=== PATIENT | female | born 1950 | race Caucasian/White ===

== ENCOUNTER 2017-03-25 18:13 | Observation (INO) ==
[2017-03-25 19:34] LABS: Basophils % 0.5 %; Eosinophils # 0.3 K/mcL (0.0-0.6); Eosinophils % 3.6 %; Hemoglobin 13.2 g/dL (11.5-15.4); Immature Granulocytes % 0.1 % (0-4); Lymphocytes # 3.2 K/mcL (0.6-4.6); Lymphocytes % 37.1 %; Mean Corpuscular Hemoglobin 28.7 pg (28.0-33.3); Mean Platelet Volume 10.9 fL (9.4-12.4); Monocytes # 0.6 K/mcL (0.0-1.3); Neutrophils # 4.4 K/mcL (1.6-8.9); Platelet Count 235 K/mcL (140-400); Red Cell Distribution Width 12.4 % (11.5-14.5); Segmented Neutrophils % 51.7 %
--- NOTE | 2017-03-25 19:38 | Emergency Department Note ---
Disposition Clinical Impression: S/P cardiac cath, Atypical chest pain CAD (coronary artery disease) Qualifiers: Coronary Disease-Associated Artery/Lesion type: [place] artery [place] vs. transplanted heart: [place] heart Associated angina: with unspecified angina Qualified Code(s): I25.119 - Atherosclerotic heart disease of [place] coronary artery with unspecified angina pectoris Disposition: Admitted As Inpatient Condition: Good Time of Disposition: 22:26 Chest Pain HPI - General Chief Complaint: ED Chest Pain Stated Complaint: Chest pain, Stent placed 03/20/17 Time Seen by Provider: 03/25/17 19:23 Source: patient, family Limitations: no limitations Vital Signs Reviewed: Yes Nursing Notes Reviewed: Yes - History of Present Illness HPI Narrative: 66-year-old female history of CHF, hypertension, hyperlipidemia, diabetes, recent stent 2 to the mid LAD and re-stenting of the RCA, proximal LAD stent was patent her catheterization report March [address] Vidhya Prado, patient presents with chest pain at rest, worse with exertion mid chest she feels a sharp currently pain-free but was as bad as a 5 out of 10 throughout the day. Some radiation to her back. 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 And beta rylan. Eyes hemoptysis or leg swelling. Reports some nausea but no emesis denies hematochezia or melena Pt complaint: chest pain Onset (ago): day(s) Duration: intermittent Onset: during rest Pain Location: substernal Severity: now resolved Severity scale (1-10): 3 Quality: tightness Pain Radiation: back Worsens with: exertion Associated symptoms: Reports: nausea, vomiting Treatments prior to arrival chest pain: none, nitroglycerin (x2) - Related Data Home Medications Medication Instructions Recorded Confirmed Metformin [Glucophage] 1,000 mg PO BIDWM 04/02/15 03/25/17 Clopidogrel [Plavix] 75 mg PO DAILY 04/10/15 03/25/17 Empagliflozin [Jardiance] 25 mg PO DAILY 07/22/16 03/25/17 Isosorbide MONOnitrate (24 HR) 60 mg PO DAILY 07/22/16 03/25/17 [Imdur] Lansoprazole [Prevacid] 15 mg PO QAM 07/22/16 03/25/17 Lisinopril [Zestril] 10 mg PO BID 07/22/16 03/25/17 Magnesium 250 mg PO DAILY 07/22/16 03/25/17 Gabapentin [Neurontin] 300 mg PO QAM 02/27/17 03/25/17 Gabapentin [Neurontin] 600 mg PO HS 02/27/17 03/25/17 GlipiZIDE [Glipizide Xl] 5 mg PO DAILY 02/27/17 03/25/17 Insulin Glargine/Lixisenatide 16 unit SQ HS 02/27/17 03/25/17 [Soliqua 100 Unit-33 Mcg/ml Pen] Insulin LISPRO [Humalog] 6 - 12 unit SQ TIDWM 02/27/17 03/25/17 Previous Rx's Medication Instructions Recorded Aspirin Enteric Coated [Aspirin EC] 81 mg PO DAILY #30 02/28/17 Metoprolol [Lopressor] 12.5 mg PO BID 30 Days 02/28/17 Amlodipine Besylate 10 mg PO DAILY #30 tablet 03/21/17 Lidocaine Patch [Lidoderm 5% patch] 1 each TP DAILY #15 patch 03/21/17 Rosuvastatin [Crestor] 40 mg PO HS #30 tab 03/21/17 Allergies Allergy/AdvReac Type Severity Reaction Status Date / Time Erythromycin Base Allergy Rash Verified 03/25/17 18:18 Penicillins Allergy Rash Verified 03/25/17 18:18 Sulfa (Sulfonamide Allergy Rash Verified 03/25/17 18:18 Antibiotics) All systems ED: reviewed and negative except as stated. Review of Systems: As Per HPI Constitutional: Denies: fever, chills, weakness Eyes: Denies: eye pain ENT ED: Denies: ear pain Cardiovascular: Reports: as per HPI, chest pain. Denies: palpitations, dyspnea on exertion Respiratory: Denies: cough, dyspnea Gastrointestinal: Denies: abdominal pain, nausea Genitourinary: Denies: urgency, dysuria Musculoskeletal: Denies: back pain, neck pain Integumentary: Denies: rash Neurological: Denies: headache Psychiatric: Denies: anxiety Endocrine: Denies: fatigue Chest Pain PMH - Past Medical History Medical history: Reports: arthritis, CHF, coronary artery disease, DVT, diabetes , hyperlipidemia, hypertension, myocardial infarction, other Surgical history: Reports: angioplasty/stent, appendectomy, , cholecystectomy, knee replacement, orthopedic, other Psychiatric history: Reports: no psych history Prior Cardiac Testing/Procedures: Stenting 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 - Social History Smoking Status: Never smoker Alcohol use: Reports: none Drug use: Reports: none Physical Exam Constitutional: alert and oriented, in NAD, vital signs reviewed and wnl Neck: normal inspection, neck is supple, no JVD Resp: normal chest inspection, CTA bilaterally, no resp distress, no wheezes/ rales/rhonchi CV: RRR, no murmurs/gallops/rubs, S1 and S2 heard Extremity: +2 bilateral radial and posterial tibial pulses, no pedal edema GI: normal inspection, Soft, NTND, no peritoneal signs, no palpable abdominal aortic aneurysm Back: normal inspection, no tenderness to palpation Neuro: A&O3, no gross motor or sensory deficits bilaterally MSK: normal inspection, bilateral UE and LE with normal ROM Skin: Groin ecchymosis on the right no pulsatile hematoma - General Limitations: no limitations General appearance: alert, in no apparent distress Course Course Narrative: 66-year-old female with multiple risk factors including history of DVTs anticoagulation, she has a heart score of 5 without a troponin, recently stented she has several stents in her current chest pain and for readmission risk factor stratification aspirin ordered no nitroglycerin at this time her chest pain is improved. - Reevaluation(s) Reevaluation #1: Admitted to Dr Garcia, CP free at admission and HD stable Given lvoenox for anticoagulation, CTA clear for PE. Time: 22:05 Vital Signs Temperature 98.9 F 03/25/17 18:15 Pulse Rate 74 03/25/17 18:15 Respiratory Rate 18 03/25/17 18:15 Blood Pressure 165/91 03/25/17 18:15 O2 Sat by Pulse Oximetry 97 03/25/17 18:15 Temperature 98.9 F 03/25/17 18:15 Pulse Rate 72 03/25/17 21:12 Respiratory Rate 16 03/25/17 22:02 Blood Pressure 157/79 03/25/17 22:02 O2 Sat by Pulse Oximetry 97 03/25/17 21:12 Oxygen Delivery Oxygen Delivery Room Air Chest Pain - Differential Diagnosis Likely: fracture of rib, unstable angina pectoris, st elevation myocardial infraction - Medical Records Medical records reviewed: Yes I reviewed the patient's medical records. - Lab Data Lab results reviewed: Yes I reviewed the patient's lab results. Result diagrams: 03/25/17 19:29 03/25/17 19:29 Lab Results 03/25/17 03/25/17 03/25/17 Range/Units 19:29 19:29 19:29 WBC 8.6 (4.3-11.1) K/mcL RBC 4.60 (3.82-4.97) M/mcL Hgb 13.2 (11.5-15.4) g/dL Hct 40.0 (35.3-44.9) % MCV 87.0 (83.0-100.0) fL MCH 28.7 (28.0-33.3) pg MCHC 33.0 (31.6-35.5) g/dL RDW 12.4 (11.5-14.5) % Plt Count 235 (140-400) K/mcL MPV 10.9 (9.4-12.4) fL Immature Gran % 0.1 (0-4) % Seg Neutrophils % 51.7 % Lymphocytes % 37.1 % Monocytes % 7.0 % Eosinophils % 3.6 % Basophils % 0.5 % Neutrophils # 4.4 (1.6-8.9) K/mcL Lymphocytes # 3.2 (0.6-4.6) K/mcL Monocytes # 0.6 (0.0-1.3) K/mcL Eosinophils # 0.3 (0.0-0.6) K/mcL Basophils # 0.0 (0.0-0.2) K/mcL D-Dimer (0-500) ng/mLFEU Sodium 140 (136-145) mEq/L Potassium 3.6 (3.5-4.5) mEq/L Chloride 106 (98-109) mEq/L Carbon Dioxide 27 (19-29) mEq/L BUN 15 (7-20) mg/dL Creatinine 0.84 (0.57-1.11) mg/dL Est GFR ( Amer) > 60 (> 60) Est GFR (Non-Af Amer) > 60 (> 60) BUN/Creatinine Ratio 18 (6-26) Glucose 193 H (70-99) mg/dL Calculated Osmolality 296 (280-300) Calcium 9.4 (8.6-10.8) mg/dL Troponin I 0.02 (0-0.03) ng/mL TSH 2.260 (0.350-4.840) mcIU/mL 03/25/17 Range/Units 19:29 WBC (4.3-11.1) K/mcL RBC (3.82-4.97) M/mcL Hgb (11.5-15.4) g/dL Hct (35.3-44.9) % MCV (83.0-100.0) fL MCH (28.0-33.3) pg MCHC (31.6-35.5) g/dL RDW (11.5-14.5) % Plt Count (140-400) K/mcL MPV (9.4-12.4) fL Immature Gran % (0-4) % Seg Neutrophils % % Lymphocytes % % Monocytes % % Eosinophils % % Basophils % % Neutrophils # (1.6-8.9) K/mcL Lymphocytes # (0.6-4.6) K/mcL Monocytes # (0.0-1.3) K/mcL Eosinophils # (0.0-0.6) K/mcL Basophils # (0.0-0.2) K/mcL D-Dimer 985 H (0-500) ng/mLFEU Sodium (136-145) mEq/L Potassium (3.5-4.5) mEq/L Chloride (98-109) mEq/L Carbon Dioxide (19-29) mEq/L BUN (7-20) mg/dL Creatinine (0.57-1.11) mg/dL Est GFR ( Amer) (> 60) Est GFR (Non-Af Amer) (> 60) BUN/Creatinine Ratio (6-26) Glucose (70-99) mg/dL Calculated Osmolality (280-300) Calcium (8.6-10.8) mg/dL Troponin I (0-0.03) ng/mL TSH (0.350-4.840) mcIU/mL - Radiology Data Radiology results reviewed: Yes I reviewed the patient's radiology results. Chest X-Ray 03/25/17 18:18 IMPRESSION: No acute process. D/ / Vargas Shah MD / Vargas Shah MD Interpreting Provider: Vargas Shah MD Chest CTA 03/25/17 19:51 IMPRESSION: No findings to suggest pulmonary embolus Improved multifocal ground-glass attenuation. No acute abnormality otherwise D/ / Neftaly Frias / Neftaly Frias Interpreting Provider: Neftaly Frias - EKG Data EKG attestation: Yes I reviewed and interpreted this EKG. EKG shows normal: sinus rhythm Rate: normal (72 bpm IN 162 QRS 78 QTc [address] segment elevations or depressions) Rhythm: NSR [place]/QRS: normal Interpretation: no acute changes - Core Measures AMI Core Measures Followed: Yes Heart Score - Score History: Moderately Suspicious EKG: Non Specific repolarisation Disturbance Age: 45-65 Risk Factors: Equal/Greater than 3 risk factor or history of atherosclerotic disease Troponin: Less than normal limit HEART Score Total: 5 Attestation Statement - Attestation Attestation: I, Shailesh Colon MD, personally evaluated this patient and discussed their management with the resident physician. I reviewed the resident's note and agree with the documented findings, medical decision making, and plan of care. 66-year-old female who is approximately 5 days status post cardiac catheter and stent placement presents to the emergency department with a complaint of generalized weakness and fatigue and just not feeling well since the stent placement. She also complains over the past few days of developing some intermittent sharp stabbing mid right chest pains which radiate straight through to the back. The pains are brief in nature but seemed to be worse with exertion. No shortness of breath associated with the pain. No diaphoresis. Some mild nausea. No cough or fever. On examination patient is a well-developed well-nourished well-appearing elderly female in no acute distress. She is alert and oriented 3. There is no cyanosis or diaphoresis. Chest is nontender to palpation. Breath sounds are clear and equal bilaterally. Heart regular rate and rhythm. Abdomen soft and nontender with normal bowel sounds. Labs reviewed. Chest x-ray negative. CTA obtained and shows no evidence of pulmonary embolism. The hospitalist, Dr. Garcia, was consulted and accepted the admission with the patient.
[2017-03-25 19:47] LABS: BUN/Creatinine Ratio 18 (6-26); Blood Urea Nitrogen 15 mg/dL (7-20); Calcium 9.4 mg/dL (8.6-10.8); Carbon Dioxide 27 mEq/L (19-29); Chloride 106 mEq/L (98-109); Glucose 193 mg/dL (70-99); Osmolality,Calculated 296 (280-300); Potassium 3.6 mEq/L (3.5-4.5); Sodium 140 mEq/L (136-145); eGFR For African Americans > 60 (> 60); eGFR For Non-African Americans > 60 (> 60)
[2017-03-25] MEDS ORDERED: Aspirin 81 MG TAB.CHEW PO ONE (19:49)
[2017-03-25] MEDS ORDERED: *HR* Enoxaparin 100 MG/ML SYRINGE SQ STA (21:20)
[2017-03-26] MEDS ORDERED: Acetaminophen 325 MG TABLET PO PRN (12:26)
[2017-03-26] MEDS ORDERED: *HR* Morphine 2 MG/ML SYRINGE IVP PRN (12:26)
[2017-03-26] MEDS ORDERED: Naloxone 0.4 MG/ML INJ IVP PRN (12:26)
[2017-03-26] MEDS ORDERED: Ondansetron 4 MG/2 ML VIAL IVP PRN (12:26)
[2017-03-26] MEDS ORDERED: *HR* HYDROcodone/Acet 5/325 mg TABLET PO PRN (12:26)
[2017-03-26] MEDS ORDERED: *HR* Dextrose 50 % in Water (Syg) 50 ML SYRINGE IVP PRN (12:31)
[2017-03-26] MEDS ORDERED: D5% in Water 1,000 ML IVC PRN (12:31)
[2017-03-26] MEDS ORDERED: Dextrose Gel 15 GM PO PRN ×2 (12:31)
[2017-03-26] MEDS ORDERED: Nitroglycerin 0.4 MG TAB.SUBL SL PRN (13:32)
[2017-03-26] MEDS: Pantoprazole 40 MG VIAL IVP SCH (14:00)
[2017-03-26] MEDS: *HR* Heparin 5,000 UNIT/ML VIAL SQ SCH ×2 (14:01→20:32)
--- NOTE | 2017-03-26 14:33 | Internal Med History&Physical ---
<Tramaine Sanchez - Last Filed: 03/26/17 15:04> Date of Encounter: 03/26/17 Time of Encounter: 10:30 Assessment and Plan (1) Chest pain Current visit: Yes Status: Acute Patient presents with right-sided chest pain that began in orthodoxy on Thursday and has been intermittent with sharp/stabbing pain and chest pressure. Patient states pain radiates to her back and becomes worse with breathing. Patient has hx of DVTs and was on Warfarin but is now only on daily aspirin and Plavix. Patient reports chest pain/pressure, dyspnea, and fatigue. Patient had heart cath last week with stent placement and had previous cath with 2 stents. Last echo and stress test on 02/28/17. First and second troponins 0.00. Will trend troponins x1. Patient placed on continuous cardiac telemetry. Cardiology consult ordered. Qualifiers: Chest pain type: precordial pain Qualified Code(s): R07.2 - Precordial pain (2) SOB (shortness of breath) on exertion Current visit: Yes Status: Acute Patient presents with acute SOB related to chest pain. Patient states that she becomes SOB with exertion. DuoNebs Q6 PRN. Patient placed on supplemental O@ with titration and continuous SpO2 monitoring. Falls/safety precautions. (3) Diabetes Current visit: Yes Status: Chronic 7 presents with history of chronic diabetes controlled with oral anti- hyperglycemics as well as insulin. Will hold patient's oral medications and administer low-dose correction insulin sliding scale with hyperglycemic protocol ordered. Blood glucose monitoring before meals at bedtime. A1c ordered. Qualifiers: Diabetes mellitus type: type 1 Diabetes mellitus complication status: with unspecified complications Qualified Code(s): E10.8 - Type 1 diabetes mellitus with unspecified complications (4) History of DVT (deep vein thrombosis) Current visit: Yes Status: Chronic Patient presents with history of DVT from having bone spurs removed several years ago. On admission today, patient's d-dimer was 985, however CTA was negative for PE. Bilateral venous Dopplers of the patient's lower extremities ordered to rule out DVTs. Heparin 5,000 units SQ Q8 ordered for DVT prophylaxis. (5) HLD (hyperlipidemia) Current visit: Yes Status: Chronic Patient presents with history of chronic hyperlipidemia. Lipid panel ordered and will continue patient's Crestor. Qualifiers: Hyperlipidemia type: pure hypercholesterolemia Qualified Code(s): E78.00 - Pure hypercholesterolemia, unspecified; E78.0 - Pure hypercholesterolemia (6) CAD (coronary artery disease) Current visit: Yes Status: Chronic Patient presents with history of chronic coronary artery disease. Patient has history of previous angioplasties with placement of 3 stents, most recently last week. Patient's last echo and stress test were on 02/28/17. We will continue patient's aspirin therapy and Plavix. Patient was previously on warfarin but is not currently taking it. Patient to receive heparin for DVT prophylaxis. Will continue patient's Crestor, Lasix Lopressor, lisinopril, Imdur, amlodipine. Qualifiers: Coronary Disease-Associated Artery/Lesion type: [place] artery [place] vs. transplanted heart: [place] heart Associated angina: with unspecified angina Qualified Code(s): I25.119 - Atherosclerotic heart disease of [place] coronary artery with unspecified angina pectoris (7) HTN (hypertension) Current visit: Yes Status: Chronic Patient presents with history of chronic HTN. Will monitor patient and VS and continue patient's Lopressor, lisinopril, Imdur, and amlodipine. Qualifiers: Hypertension type: essential hypertension Qualified Code(s): I10 - Essential (primary) hypertension (8) DVT prophylaxis Current visit: Yes Status: Acute Patient to be placed on DVT prophylaxis due to current admission protocol and bedrest status. Heparin 5,000 units SQ Q8 ordered. Internal Medicine - H&P: HPI Chief complaint: Chest pain Admitted From: Emergency Dept Plans for Post Hospital Care: Home History of present illness: Ms. Stokes is a 66 year old female with medical history of arthritis, CHF, CAD, DVT , diabetes controlled with oral and insulin, HLD, and HTN who presents from the ED with chief complaint of right-sided chest pain that began in orthodoxy on Thursday and has been intermittent with sharp/stabbing pain and chest pressure. Patient states pain radiates to her back and becomes worse with breathing. Patient has hx of DVTs and was on Warfarin but is now only on daily aspirin and Plavix. Patient reports chest pain/pressure, dyspnea, and fatigue but denies recent illness, fever, chills, palpitations, nausea, vomiting, abdominal pain, lightheadedness, dizziness, vision changes, presyncope, or syncope. Patient reports she has never smoked. And has history of previous angioplasty with placement of 3 stents with most recent being last week. Previous echo and stress were done on 02/28/17. Patient's vital signs on admission include temperature of 98.9F, pulse rate of 74, respiratory rate of 18, BP of 165/91, and SPO2 of 97% on room air. Abnormal lab values include glucose of 193 and d- dimer of 985. Initial troponin 0.02. Due to patient's history of DVT, concern was for possible PE however CTA of the chest today shows no findings to suggest pulmonary embolus, improved multifocal groundglass attenuation, and no acute abnormality otherwise. Patient's EKG today shows sinus rhythm and normal ECG. Patient reports pain improved with nitroglycerin. Patient is hemodynamically stable and reports no acute distress on examination. HR was RRR and lungs clear on auscultation. No pedal edema present. Information taken from patient, family , chart review, previous medical records and imaging. Ms. Stokes is at high risk for cardiac event based on history, previous angioplasty with stent placement, current symptoms, and risk factors and will be placed as observation status. Time spent with patient and family greater than 40 minutes. Past Med Surg Social Fam HX - Past Medical History Source: patient, old records reviewed Medical history: arthritis, CHF, coronary artery disease, DVT, diabetes, hyperlipidemia, hypertension, myocardial infarction, other Psychiatric history: no psych history - Past Surgical History Surgical History: angioplasty/stent, appendectomy, , cholecystectomy, knee replacement, orthopedic, other - Social History Smoking Status: Never smoker Smokeless Tobacco Status: No Alcohol use: none Drug use: none Current living situation: Home, With Family Activity Level: Independent ambulation, Very active Recent Out of Country Travel Within the Last 8 Weeks: No Exposure or Possible Exposure to Illness During Travel: No - Family History Son Adopted: No Family Member Ethnicity: Non- Living Status: Still Living Hx Family Cardiac Disorders: Yes Hx Family Respiratory Disorders: Yes Hx Family Cancer: Yes Hx Family GI Disorders: Yes Hx Family Endocrine Disorder: Yes Hx Family Neuromuscular Disorders: No Hx Family Neurologic Disorders: No Hx Family HEENT Disorders: No Hx Family Autoimmune Disorders: No Father Adopted: No Race: Family Member Ethnicity: Non- Living Status: Age at : 72 Cause of : [place] Hx Family Cardiac Disorders: Yes (HD, HTN, [place] x4, CABG) Hx Family HEENT Disorders: Yes (blind from macular degeneration) Mother Race: Family Member Ethnicity: Non- Living Status: Age at : 69 Cause of : Heart failure Hx Family Cardiac Disorders: Yes (HTN, HF) Hx Family Endocrine Disorder: Yes (DM) Sister Race: Family Member Ethnicity: Non- Living Status: Age at : 61 Cause of : Cancer Hx Family Cardiac Disorders: Yes (HTN) Hx Family Cancer: Yes (Metastatic) Internal Medicine - H&P: Meds Metformin [Glucophage] 1,000 mg PO BIDWM 04/02/15 [History] Clopidogrel [Plavix] 75 mg PO DAILY 04/10/15 [History] Empagliflozin [Jardiance] 25 mg PO DAILY 07/22/16 [History] Isosorbide MONOnitrate (24 HR) [Imdur] 60 mg PO DAILY 07/22/16 [History] Lansoprazole [Prevacid] 15 mg PO QAM 07/22/16 [History] Lisinopril [Zestril] 10 mg PO BID 07/22/16 [History] Magnesium 250 mg PO DAILY 07/22/16 [History] Gabapentin [Neurontin] 300 mg PO QAM 02/27/17 [History] Gabapentin [Neurontin] 600 mg PO HS 02/27/17 [History] GlipiZIDE [Glipizide Xl] 5 mg PO DAILY 02/27/17 [History] Insulin Glargine/Lixisenatide [Soliqua 100 Unit-33 Mcg/ml Pen] 16 unit SQ HS [History] Insulin LISPRO [Humalog] 6 - 12 unit SQ TIDWM 02/27/17 [History] Aspirin Enteric Coated [Aspirin EC] 81 mg PO DAILY #30 02/28/17 [Rx] Metoprolol [Lopressor] 12.5 mg PO BID 30 Days 02/28/17 [Rx] Amlodipine Besylate 10 mg PO DAILY #30 tablet 03/21/17 [Rx] Lidocaine Patch [Lidoderm 5% patch] 1 each TP DAILY #15 patch 03/21/17 [Rx] Rosuvastatin [Crestor] 40 mg PO HS #30 tab 03/21/17 [Rx] 3 Allergy/AdvReac Type Severity Reaction Status Date / Time Erythromycin Base Allergy Rash Verified 03/25/17 18:18 Penicillins Allergy Rash Verified 03/25/17 18:18 Sulfa (Sulfonamide Allergy Rash Verified 03/25/17 18:18 Antibiotics) All Systems PM: A 10-system review of systems was performed and is negative for pertinent findings except as documented above in the HPI. - Constitutional Constitutional: as per HPI, weakness, no chills, no fever(s), no night sweats - EENT Eyes: no change in vision, no discharge, no pain, no photophobia Ears: no ear discharge, no ear pain, no tinnitus Nose, mouth and throat: no dysphagia, no nasal discharge, no neck pain, no sore throat - Breasts Breasts: as per HPI - Cardiovascular Cardiovascular ROS IM: as per HPI, chest pain, dyspnea, dyspnea on exertion - Respiratory Respiratory: as per HPI, dyspnea, dyspnea on exertion - Gastrointestinal Gastrointestinal: no abdominal pain, no diarrhea, no hematemesis, no hematochezia, no melena, no nausea, no vomiting - Genitourinary Genitourinary: no change in urinary stream, no dysuria, no flank pain, no hematuria Menstruation: as per HPI - Musculoskeletal Musculoskeletal ROS IM: no numbness, no tingling - Integumentary Integumentary IM: no rash, no unusual bruising - Neurological Neurological ROS: no confusion, no convulsions, no focal weakness, no numbness, no tingling, no tremor(s) - Psychiatric Psychiatric: as per HPI - Endocrine Endocrine IM: as per HPI - Hematologic/Lymphatic Hematologic/Lymphatic: no easy bruising - Allergic/Immunologic Allergic/Immunologic: as per HPI - Constitutional Vitals: Temp Pulse Resp BP Pulse Ox 97.9 F 65 18 160/80 96 03/26/17 11:28 03/26/17 11:28 03/26/17 11:28 03/26/17 11:28 03/26/17 11:28 General appearance: Present: cooperative, A&O X 3, pleasant, no acute distress, obese, answers questions appropriately - Head Head exam: Present: atraumatic, normocephalic - Eye Eye exam: Present: PERRL, conjuntiva pink, sclera anicteric Pupils: Present: PERRL - ENT ENT exam: Present: normal exam, normal external ear exam - Neck Neck exam general surgery: Present: normal inspection, supple, trachea midline. Absent: lymphadenopathy - Respiratory Respiratory exam: Present: CTAB. Absent: accessory muscle use, rales, rhonchi, wheezes - Cardiovascular Cardiovascular exam: Present: RRR, +S1, +S2. Absent: diastolic murmur, gallop, rubs, systolic murmur - GI/Abdominal GI/Abdominal exam: Present: normal bowel sounds, soft, no peritoneal signs. Absent: distended, tenderness - Rectal Rectal exam: Present: deferred - Additional comments: exam deferred. - Extremities Exam Extremities exam: Present: warm, radial pulses palpable and symmetrical. Absent : calf tenderness, cyanotic, pedal edema - Back Exam Back exam: Present: normal inspection - Neurological Exam Neurological exam: Present: CN II-XII intact, oriented X3, no focal deficits. Absent: pronater drift, facial droop, speech deficit - Psychiatric Psychiatric exam: Present: normal affect, normal mood - Skin Skin exam: Present: dry, intact Internal Med - H&P Results - Labs CBC & Chem 7: 03/25/17 19:29 03/25/17 19:29 Labs: Cardiac Enzymes 03/26/17 Range/Units 13:01 Troponin I 0.01 (0-0.03) ng/mL - EKG Data EKG shows normal: sinus rhythm Rate: normal - EKG Data Prior EKG available for review: yes When compared to previous EKG: there is no significant change Interpretation IM: normal EKG EKG comments: 03/26/17 14:41 EKG dated 03/20/17 shows sinus rhythm. EKG dated 03/26/17 shows sinus rhythm and normal ECG. - Diagnostic Studies Chest x-ray Additional comments: Impressions Chest X-Ray 03/25/17 18:18 IMPRESSION: No acute process. D/ / Vargas Shah MD / Vargas Shah MD Interpreting Provider: Vargas Shah MD Other Images Additional comments: Impressions Chest CTA 03/25/17 19:51 IMPRESSION: No findings to suggest pulmonary embolus Improved multifocal ground-glass attenuation. No acute abnormality otherwise D/ / Neftaly Frias / Neftaly Frias Interpreting Provider: Neftaly Frias <Neftaly Sanchez - Last Filed: 03/26/17 17:48> Date of Encounter: 03/26/17 Internal Medicine - H&P: HPI History of present illness: Ms. Stokes is a 66 year old female All Systems PM: A 10-system review of systems was performed and is negative for pertinent findings except as documented above in the HPI. - Constitutional Vitals: Temp Pulse Resp BP Pulse Ox 98.2 F 61 18 124/59 95 03/26/17 17:05 03/26/17 17:05 03/26/17 17:05 03/26/17 17:05 03/26/17 17:05 Internal Med - H&P Results - Labs CBC & Chem 7: 03/25/17 19:29 03/25/17 19:29 Labs: Cardiac Enzymes 03/26/17 Range/Units 13:01 Troponin I 0.01 (0-0.03) ng/mL - Attending Attestation I personally interviewed and examined this pt I agree with the finingd, assessment and plan of MEG Sanchez. Cardiology input apprec. Doubt cardiac etiology. ?Gerd, ?mskel. Gabrielle hagen in am.
--- NOTE | 2017-03-26 14:45 | Cardiology Consult Note ---
Date of Encounter: 03/26/17 Time of Encounter: 14:30 Assessment and Plan (1) Atypical chest pain Current Visit: Yes Status: Acute Presented to the ED with atypical chest pain--different from angina equivalent/ presenting symptoms last week. Troponin negative x2. No ischemic ECG changes. Recent [facility] s/p PCI as described below, s/p successful PTCA/BRITTANEY to mLAD and to ISR of mRCA; otherwise non-obstructive CAD, EF preserved. Continue to cycle troponin for a total of 3. Will increase imdur to optimize medications and improve BP control; otherwise continue home CV medications for now including asa, statin, betablocker, plavix, amlodipine, and ACEi. No further testing recommended at this time. Will continue to follow and re-evaluate symptoms in AM. (2) CAD (coronary artery disease) Current Visit: Yes Status: Chronic Plan as above. Uninterrupted DAPT (asa + plavix) x1 year s/p PTCA/BRITTANEY, continue betablocker, statin, and nitrates. Qualifiers: Coronary Disease-Associated Artery/Lesion type: [place] artery [place] vs. transplanted heart: [place] heart Associated angina: without angina Qualified Code(s): I25.10 - Atherosclerotic heart disease of [place] coronary artery without angina pectoris (3) HTN (hypertension) Current Visit: Yes Status: Chronic Elevated upon admission and remains uncontrolled as inpatient. Will increase nitrate to improve BP control, may need to increase ACEi as well. Will continue to monitor and make changes as necessary. Qualifiers: Hypertension type: essential hypertension Qualified Code(s): I10 - Essential (primary) hypertension Discussion w patient/family: The assessment and plan as outlined above was discussed with the patient and/or family members who expressed understanding and agreement. All questions were answered. Thank you for involving us in the care of your patient. Please call with any questions. The patient will be discussed and reviewed with Dr. Manish Prado; changes to be made accordingly. History of Present Illness Consult date: 03/26/17 Requesting physician: Tramaine Sanchez Consult reason: Chest pain Chief complaint: Chest pain History of present illness: Ms. Stokes is a 66 year old female with PMHx significant for CAD s/p PCI, HTN, DVT (15 years ago), and DMII presents to ED with complaints of midsternal "sharp" intermittent chest discomfort. Reports episodes have been intermittent since Thursday, last for seconds at a time and occur at both rest and exertion. Reports pain subsides either without intervention or with NTG. Of note, she was recently hospitalized with UA, underwent [facility] s/p PCI--she reports discomfort is different from pain last week (right axilla/jaw pain and soreness). Troponin has been negative x2, no ischemic ECG changes were noted. Blood pressure noted to be mildly elevated upon arrival to ED. Reports compliance with uninterrupted DAPT (asa + plavix). Prior CV testing: [facility] 03/20/17: EF 65%, s/p successful PTCA to mLAD and successful PTCA/BRITTANEY to ISR of mRCA; previously stent pLAD stent widely patent; otherwise mild-moderate nonobstructive CAD (25% pLCx, 50% 1st OM, 30% ramus). Nuclear stress test 02/28/17: Gated EF 72%, perfusion imaging negative for ischemia or infarct. Echo 02/28/17: EF 60%, mild hypokinesis or mid inferoseptal and mid inferior segments Cardiac catheterization 04/10/15: EF 65%; LVEDP 17mmHg; R dominant, 15% L main , previously stented prox LAD widely patent, 50% OM1, 20% RI, 90% mid RCA- PCI BRITTANEY 2.75 x 24mm Promus Past Med Surg Social Fam HX - Past Medical History Attestation: Yes The following information was validated with the patient. Source: patient Medical history: arthritis, coronary artery disease, DVT, diabetes, hyperlipidemia, hypertension, myocardial infarction Psychiatric history: no psych history - Past Surgical History Surgical History: angioplasty/stent, appendectomy, , cholecystectomy, knee replacement, orthopedic, other - Social History Smoking Status: Never smoker Smokeless Tobacco Status: No Alcohol use: none Drug use: none - Family History Son Adopted: No Family Member Ethnicity: Non- Living Status: Still Living Hx Family Cardiac Disorders: Yes Hx Family Respiratory Disorders: Yes Hx Family Cancer: Yes Hx Family GI Disorders: Yes Hx Family Endocrine Disorder: Yes Hx Family Neuromuscular Disorders: No Hx Family Neurologic Disorders: No Hx Family HEENT Disorders: No Hx Family Autoimmune Disorders: No Father Adopted: No Race: Family Member Ethnicity: Non- Living Status: Age at : 71 Cause of : [place] Hx Family Cardiac Disorders: Yes (HD, HTN, [place] x4, CABG) Hx Family HEENT Disorders: Yes (blind from macular degeneration) Mother Race: Family Member Ethnicity: Non- Living Status: Age at : 69 Cause of : Heart failure Hx Family Cardiac Disorders: Yes (HTN, HF) Hx Family Endocrine Disorder: Yes (DM) Sister Race: Family Member Ethnicity: Non- Living Status: Age at : 61 Cause of : Cancer Hx Family Cardiac Disorders: Yes (HTN) Hx Family Cancer: Yes (Metastatic) Medications and Allergies Metformin [Glucophage] 1,000 mg PO BIDWM 04/02/15 [History] Clopidogrel [Plavix] 75 mg PO DAILY 04/10/15 [History] Empagliflozin [Jardiance] 25 mg PO DAILY 07/22/16 [History] Isosorbide MONOnitrate (24 HR) [Imdur] 60 mg PO DAILY 07/22/16 [History] Lansoprazole [Prevacid] 15 mg PO QAM 07/22/16 [History] Lisinopril [Zestril] 10 mg PO BID 07/22/16 [History] Magnesium 250 mg PO DAILY 07/22/16 [History] Gabapentin [Neurontin] 300 mg PO QAM 02/27/17 [History] Gabapentin [Neurontin] 600 mg PO HS 02/27/17 [History] GlipiZIDE [Glipizide Xl] 5 mg PO DAILY 02/27/17 [History] Insulin Glargine/Lixisenatide [Soliqua 100 Unit-33 Mcg/ml Pen] 16 unit SQ HS [History] Insulin LISPRO [Humalog] 6 - 12 unit SQ TIDWM 02/27/17 [History] Aspirin Enteric Coated [Aspirin EC] 81 mg PO DAILY #30 02/28/17 [Rx] Metoprolol [Lopressor] 12.5 mg PO BID 30 Days 02/28/17 [Rx] Amlodipine Besylate 10 mg PO DAILY #30 tablet 03/21/17 [Rx] Lidocaine Patch [Lidoderm 5% patch] 1 each TP DAILY #15 patch 03/21/17 [Rx] Rosuvastatin [Crestor] 40 mg PO HS #30 tab 03/21/17 [Rx] 3 Allergy/AdvReac Type Severity Reaction Status Date / Time Erythromycin Base Allergy Rash Verified 03/25/17 18:18 Penicillins Allergy Rash Verified 03/25/17 18:18 Sulfa (Sulfonamide Allergy Rash Verified 03/25/17 18:18 Antibiotics) All Systems Review: A 10-system review of systems was performed and is negative for pertinent findings except as documented above in the HPI. - Cardiovascular Cardiovascular: as per HPI Physical Examination Vital Signs, Last 4 Hours Temp Pulse Resp BP Pulse Ox 03/26/17 11:28 97.9 F 65 18 160/80 96 General: Conversant, No Apparent Distress HEENT: Atraumatic, Normocephaly, Mucus Membranes Moist Neck: No JVD, Normal carotid pulses Cardiac: Reg Rate and Rhythm, Normal S1 and S2, No Murmur Lungs: Normal Breath Sounds, No Wheeze, Rales, Rhonchi Neuro: Alert and responsive, No focal deficits noted Abdomen: Soft, Non-Tender Skin: No rashes noted on visualized skin Musculoskeletal: No Chest Wall Tenderness Extremities: No Clubbing, No Cyanosis, No Edema, Normal Pulses Results 03/25/17 19:29 03/25/17 19:29 Lab Results 03/26/17 13:01 Troponin I 0.01 Active Medications Acetaminophen (Tylenol) 650 mg PO Q6HR PRN PRN Reason: Mild Pain (1-3) Stop: 09/25/17 12:27 Hydrocodone Bitart/Acetaminophen (Pine 5-325 Mg) 1 tab PO Q4HR PRN PRN Reason: Moderate Pain (4-6) Stop: 09/25/17 12:27 Amlodipine Besylate (Norvasc) 10 mg PO DAILY [facility] Stop: 09/26/17 09:01 Aspirin (Aspirin Ec) 81 mg PO DAILY [facility] Stop: 09/26/17 09:01 Clopidogrel Bisulfate (Plavix) 75 mg PO DAILY [facility] Stop: 09/26/17 09:01 Dextrose/Water (Dextrose 50% (Syg)) 25 ml IVP AD PRN PRN Reason: Hypoglycemia Stop: 09/25/17 12:32 Gabapentin (Neurontin) 300 mg PO QAM [facility] Stop: 09/26/17 09:01 Gabapentin (Neurontin) 600 mg PO HS [facility] Stop: 09/25/17 21:01 Glucagon (Glucagen) 1 mg IM ONCE PRN PRN Reason: Hypoglycemia Stop: 09/25/17 12:32 Glucose (Gluctose) 15 gm PO ONCE PRN PRN Reason: Hypoglycemia Stop: 09/25/17 12:32 Glucose (Gluctose) 30 gm PO ONCE PRN PRN Reason: Hypoglycemia Stop: 09/25/17 12:32 Heparin Sodium (Porcine) (Heparin) 5,000 unit SQ Q8HCO [facility] Stop: 09/25/17 14:01 Last Admin: 03/26/17 14:01 Dose: 5,000 unit Dextrose (Dextrose 5%) 1,000 mls @ 100 mls/hr IVC .Q10H PRN PRN Reason: HYPOGLYCEMIA Stop: 09/25/17 12:32 Insulin Human Lispro (Humalog) 0 units SQ TIDAC [facility] PRN Reason: Protocol Stop: 09/25/17 16:31 Insulin Human Lispro (Humalog) 0 units SQ HS [facility] PRN Reason: Protocol Stop: 09/25/17 21:01 Isosorbide Mononitrate (Imdur) 60 mg PO DAILY [facility] Stop: 09/26/17 09:01 Lidocaine HCl (Lidoderm 5% Patch) 1 each TP DAILY [facility] Stop: 09/26/17 09:01 Lisinopril (Zestril) 10 mg PO BID [facility] PRN Reason: Protocol Stop: 09/25/17 21:01 Magnesium Oxide (Mag-Ox) 400 mg PO DAILY [facility] Stop: 09/26/17 09:01 Metoprolol Tartrate (Lopressor) 12.5 mg PO BID [facility] Stop: 09/25/17 21:01 Morphine Sulfate (Morphine Sulfate) 2 mg IVP Q4HR PRN PRN Reason: Severe Pain (7-10) Stop: 09/25/17 12:27 Naloxone HCl (Narcan) 0.4 mg IVP Q2MIN PRN PRN Reason: Opioid Reversal Stop: 09/25/17 12:27 Nitroglycerin (Nitroglycerin) 0.4 mg SL Q5MIN PRN PRN Reason: Chest Pain Stop: 09/25/17 13:33 Ondansetron HCl (Zofran) 4 mg IVP Q8HR PRN PRN Reason: Nausea And Vomiting Stop: 09/25/17 12:27 Pantoprazole Sodium (Protonix) 40 mg IVP DAILY [facility] Stop: 09/25/17 12:31 Last Admin: 03/26/17 14:00 Dose: 40 mg Rosuvastatin Calcium (Crestor) 40 mg PO HS [facility] Stop: 09/25/17 21:01 - Imaging and Cardiology Stress Test: report reviewed Echo: report reviewed Cardiac cath: report reviewed Other Results: 12 hour tele: avg HR=62 SR. No signficant event noted. - EKG Interpretation EKG results cardiology: personally reviewed Consult Discharge Plan - Plan Referrals: Seamus Luther Jr, MD [Primary Care Provider] -
[2017-03-26] MEDS ORDERED: Ipratropium/Albuterol Neb 3 ML IH PRN (14:59)
[2017-03-26] MEDS ORDERED: Isosorbide MONOnitrate (24 HR) 30 MG TAB.ER.24H PO ONE (15:30)
[2017-03-26] MEDS ORDERED: Isosorbide MONOnitrate (24 HR) 60 MG TAB.ER.24H PO ONE (16:51)
[2017-03-26] MEDS: amLODIPine 5 MG TABLET PO SCH (17:39)
[2017-03-26] MEDS: Aspirin Enteric Coated 81 MG Tablet PO SCH (17:39)
[2017-03-26] MEDS: Insulin LISPRO 300 UNITS/3 ML VIAL SQ SCH (17:40)
[2017-03-26] MEDS ORDERED: Insulin LISPRO 300 UNITS/3 ML VIAL SQ SCH (21:00)
[2017-03-26] MEDS ORDERED: Lisinopril 20 MG TABLET PO SCH (21:00)
[2017-03-26] MEDS ORDERED: Gabapentin 300 MG CAPSULE PO SCH (21:00)
[2017-03-27 01:22] VITALS: BP 107/58
[2017-03-27 05:04] LABS: Hemoglobin A1C 6.6 %
[2017-03-27 05:07] LABS: Basophils % 0.5 %; Eosinophils # 0.3 K/mcL (0.0-0.6); Eosinophils % 3.3 %; Hematocrit 36.2 % (35.3-44.9); Hemoglobin 12.1 g/dL (11.5-15.4); Immature Granulocytes % 0.3 % (0-4); Lymphocytes # 2.7 K/mcL (0.6-4.6); Lymphocytes % 35.6 %; Mean Corpuscular HGB Conc 33.4 g/dL (31.6-35.5); Mean Corpuscular Hemoglobin 28.9 pg (28.0-33.3); Mean Corpuscular Volume 86.4 fL (83.0-100.0); Mean Platelet Volume 10.9 fL (9.4-12.4); Monocytes # 0.6 K/mcL (0.0-1.3); Monocytes % 7.3 %; Platelet Count 197 K/mcL (140-400); Red Blood Count 4.19 M/mcL (3.82-4.97); Red Cell Distribution Width 12.3 % (11.5-14.5)
[2017-03-27 05:08] LABS: INR 1.1; Prothrombin Time 11.3 Seconds (9.4-12.1)
[2017-03-27 05:10] LABS: Activated Partial Thrombo Time 39.8 Seconds (26.0-36.0)
[2017-03-27 05:13] LABS: Alanine Aminotransferase 11 Units/L (0-55); Albumin 2.9 g/dL (3.5-5.0); Aspartate Amino Transferase 11 Units/L (5-34); BUN/Creatinine Ratio 20 (6-26); Bilirubin,Total 0.5 mg/dL (0.2-1.2); Blood Urea Nitrogen 16 mg/dL (7-20); Calcium 8.9 mg/dL (8.6-10.8); Carbon Dioxide 31 mEq/L (19-29); Chloride 103 mEq/L (98-109); Chol/HDL Ratio 2.8 (0-4.9); Cholesterol 92 mg/dL (< 200); Globulin 2.9 g/dL (2.4-3.5); Glucose 206 mg/dL (70-99); HDL Cholesterol 33 mg/dL (40-59); LDL Cholesterol,Calculated 40 mg/dL (0-99); Magnesium 1.7 mg/dL (1.6-2.6); Osmolality,Calculated 291 (280-300); Sodium 137 mEq/L (136-145); Total Protein 5.8 g/dL (6.0-8.3); Triglycerides 95 mg/dL (< 150); eGFR For African Americans > 60 (> 60); eGFR For Non-African Americans > 60 (> 60)
[2017-03-27 05:14] LABS: Alkaline Phosphatase < 5 Units/L (38-126)
[2017-03-27] MEDS: *HR* Heparin 5,000 UNIT/ML VIAL SQ SCH (05:52)
[2017-03-27] MEDS ORDERED: Gabapentin 300 MG CAPSULE PO SCH (09:00)
[2017-03-27] MEDS ORDERED: Aspirin Enteric Coated 81 MG Tablet PO SCH (09:00)
[2017-03-27] MEDS ORDERED: Isosorbide MONOnitrate (24 HR) 30 MG TAB.ER.24H PO SCH ×2 (09:00)
[2017-03-27] MEDS ORDERED: amLODIPine 5 MG TABLET PO SCH (09:00)
[2017-03-27] MEDS ORDERED: Lisinopril 20 MG TABLET PO SCH (09:00)
[2017-03-27] MEDS ORDERED: Magnesium Oxide 400 MG TABLET PO SCH (09:00)
[2017-03-27] MEDS: Aspirin Enteric Coated 81 MG Tablet PO SCH (09:09)
[2017-03-27] MEDS: amLODIPine 5 MG TABLET PO SCH (09:09)
[2017-03-27] MEDS: Insulin LISPRO 300 UNITS/3 ML VIAL SQ SCH ×2 (09:10→11:57)
[2017-03-27] MEDS: Pantoprazole 40 MG VIAL IVP SCH (09:10)
--- NOTE | 2017-03-27 09:53 | Discharge Summary ---
<Chase Singer - Last Filed: 03/27/17 10:50> Date of Encounter: 03/27/17 Time of Encounter: 09:51 - Discharge Diagnosis (1) Atypical chest pain Priority: Primary Status: Acute Comments: Cardio was consulted. Troponin were negative x4, no ischemic changes on EKG. Imdur increased to 90mg qd. Continue asa, statin, beta rylan, plavix, amlodipine, and ACEi. Discharged to follow up with Cardio in 2 weeks and PCP in the next 3-5 days. (2) CAD (coronary artery disease) Priority: Secondary Status: Chronic Qualifiers: Coronary Disease-Associated Artery/Lesion type: [place] artery [place] vs. transplanted heart: [place] heart Associated angina: without angina Qualified Code(s): I25.10 - Atherosclerotic heart disease of [place] coronary artery without angina pectoris (3) SOB (shortness of breath) on exertion Priority: Secondary Status: Acute (4) HTN (hypertension) Priority: Secondary Status: Chronic Qualifiers: Hypertension type: essential hypertension Qualified Code(s): I10 - Essential (primary) hypertension (5) HLD (hyperlipidemia) Priority: Secondary Status: Chronic Qualifiers: Hyperlipidemia type: pure hypercholesterolemia Qualified Code(s): E78.00 - Pure hypercholesterolemia, unspecified; E78.0 - Pure hypercholesterolemia (6) Diabetes Priority: Secondary Status: Chronic Qualifiers: Diabetes mellitus type: type 1 Diabetes mellitus complication status: with unspecified complications Qualified Code(s): E10.8 - Type 1 diabetes mellitus with unspecified complications (7) History of DVT (deep vein thrombosis) Priority: Secondary Status: Chronic - Discharge Medications Prescriptions: Isosorbide MONOnitrate (24 HR) [Imdur] 90 mg PO DAILY #30 tab.er.24h Home Medications: Metformin [Glucophage] 1,000 mg PO BIDWM 04/02/15 [History] Clopidogrel [Plavix] 75 mg PO DAILY 04/10/15 [History] Empagliflozin [Jardiance] 25 mg PO DAILY 07/22/16 [History] Lansoprazole [Prevacid] 15 mg PO QAM 07/22/16 [History] Magnesium 250 mg PO DAILY 07/22/16 [History] Gabapentin [Neurontin] 300 mg PO QAM 02/27/17 [History] Gabapentin [Neurontin] 600 mg PO HS 02/27/17 [History] GlipiZIDE [Glipizide Xl] 5 mg PO DAILY 02/27/17 [History] Insulin Glargine/Lixisenatide [[place] 100 Unit-33 Mcg/ml Pen] 16 unit SQ HS [History] Insulin LISPRO [Humalog] 6 - 12 unit SQ TIDWM 02/27/17 [History] Aspirin Enteric Coated [Aspirin EC] 81 mg PO DAILY #30 02/28/17 [Rx] Metoprolol [Lopressor] 12.5 mg PO BID 30 Days 02/28/17 [Rx] Amlodipine Besylate 10 mg PO DAILY #30 tablet 03/21/17 [Rx] Lidocaine Patch [Lidoderm 5% patch] 1 each TP DAILY #15 patch 03/21/17 [Rx] Rosuvastatin [Crestor] 40 mg PO HS #30 tab 03/21/17 [Rx] Isosorbide MONOnitrate (24 HR) [Imdur] 90 mg PO DAILY #30 tab.er.24h 03/27/17 [ Rx] Lisinopril [Zestril] 10 mg PO DAILY tab 03/27/17 [Rx] Allergies/Adverse Reactions: 3 Allergy/AdvReac Type Severity Reaction Status Date / Time Erythromycin Base Allergy Rash Verified 03/25/17 18:18 Penicillins Allergy Rash Verified 03/25/17 18:18 Sulfa (Sulfonamide Allergy Rash Verified 03/25/17 18:18 Antibiotics) Procedures/tests Complete & Pending: Procedures Performed prior 72 hours Category Date Time Status Venous Doppler [EV venous imaging LE BI] Routine Y 03/26/17 12:35 Completed Date of admission: 03/25/17 21:42 Primary care physician: Seamus Luther Jr, MD Consults: 03/26/17 13:33 Consult to Cardiology [CONS] Routine Comment: Consulting Provider: Cardiology Celia Reason for Consult: Patient had heart cath last month and previous echo and stress test on 02/28/17. Patient began having right-sided chest pain on Thursday which alternated between sharp/stabbing and pressure and became worse with radiation to back with SOB. 3 stents previously. Patient has hx of DVT. CTA of chest negative for PE (D-dimer is 985). Bilateral venous Dopplers ordered. Pt. states nitro helped relieve pain. Risk factors include HTN, HLD, DM. Initial trop 0.02 Call Completed: Yes Discharging clinician: Vernon Horn ([facility]) Anticipated date of discharge: 03/27/17 - Patient Status Disposition: Home, Self-Care Condition: Good Functional capacity at discharge: independent ambulation Overall status at discharge: patient is progressing back to baseline - Discharge Instructions Instructions: Chest Pain (DC) Follow Up With: Samantha Matthews CNP [Advanced Practice Nurse] - 04/03/17 9:45 am - Diet and Activity Activity: increase activity as tolerated Diet: diabetic diet, low fat, low cholesterol, low salt diet Interval History: Patient reports doing well this morning and overnight. No additional chest pain or pressure, no shortness of breath. Patient denies fevers, chills, sweats , headaches, lightheadedness, dizziness, nausea, vomiting, abdominal pain, changes in bowels or bladder, weakness, or loss of sensation. Hospital course: Ms. Stokes is a 66 year old female with history arthritis, CHFpEF, CAD, previous DVT, diabetes with insulin, hld, htn who presented to the ED on 03/25/17 with complaints of sharp/stabbing intermittent pain and pressure on the right side of her chest that began Thursday. Patient also complaint of radiation to her back particularly when she becomes short of breath with exertion. Patient was on aspirin and plavix DAPT s/p stents as recent as last week. EKG revealed no acute changes, Troponins x4 were negative at 0.00, 0.01, 0.00, 0.01. CXR revealed no acute process. Last echo 02/28/17. LHC 03/20/17. D-dimer was 985 , CTA chest revealed no PE and improved multifocal ground glass attenuation. Cardio recommended continuted aspirin, statin, betablocker, plavix, amlodipine, and ACEi. Patient was increased to Imdur 90mg daily. DAPT to continue for 1 year s/p PTCA/BRITTANEY on 03/20/17. Patient tolerated increase well and cardio signed off. Patient to follow up with PCP in 3-5 days and Cardio within 2 weeks. - Time Spent with Patient Total time spent providing and/or coordinating discharge services: - Constitutional Vitals: Temp Pulse Resp BP Pulse Ox 98.6 F 61 14 107/58 98 03/27/17 01:21 03/27/17 01:21 03/27/17 01:21 03/27/17 01:21 03/27/17 08:58 General appearance: Present: cooperative, A&O X 3, pleasant, no acute distress, obese, answers questions appropriately - Head Head exam: Present: atraumatic, normal inspection, normocephalic - Eye Eye exam: Present: EOMI, normal appearance - ENT ENT exam: Present: mucous membranes moist, normal exam, normal oropharynx - Neck Neck exam general surgery: Present: full ROM, normal inspection, supple, trachea midline. Absent: tenderness - Respiratory Respiratory exam: Present: CTAB. Absent: rales, respiratory distress, rhonchi, wheezes, tachypnea - Cardiovascular Cardiovascular exam: Present: RRR, +S1, +S2. Absent: diastolic murmur, JVD, systolic murmur - GI/Abdominal GI/Abdominal exam: Present: normal bowel sounds, soft. Absent: distended, guarding, tenderness - Extremities Exam Extremities exam: Present: full ROM, normal capillary refill, normal inspection , warm, radial pulses palpable and symmetrical. Absent: pedal edema, tenderness - Neurological Exam Neurological exam: Present: alert, normal gait, oriented X3, no focal deficits, strengths equal and symetr throughout. Absent: facial droop, speech deficit - Psychiatric Psychiatric exam: Present: normal affect, normal mood - Skin Skin exam: Present: dry, intact, normal color, warm. Absent: rash <Vernon Horn H - Last Filed: 03/27/17 16:02> Date of Encounter: 03/27/17 Procedures/tests Complete & Pending: Procedures Performed prior 72 hours Category Date Time Status Venous Doppler [EV venous imaging LE BI] Routine Y 03/26/17 12:35 Completed Date of admission: 03/25/17 21:42 Primary care physician: Seamus Luther Jr, MD Consults: 03/26/17 13:33 Consult to Cardiology [CONS] Routine Comment: Consulting Provider: Cardiology Celia Reason for Consult: Patient had heart cath last month and previous echo and stress test on 02/28/17. Patient began having right-sided chest pain on Thursday which alternated between sharp/stabbing and pressure and became worse with radiation to back with SOB. 3 stents previously. Patient has hx of DVT. CTA of chest negative for PE (D-dimer is 985). Bilateral venous Dopplers ordered. Pt. states nitro helped relieve pain. Risk factors include HTN, HLD, DM. Initial trop 0.02 Call Completed: Yes Hospital course: Ms. Stokes is a 66 year old female - Time Spent with Patient Total time spent providing and/or coordinating discharge services: - Constitutional Vitals: Temp Pulse Resp BP Pulse Ox 98.6 F 61 14 107/58 98 03/27/17 01:21 03/27/17 01:21 03/27/17 01:21 03/27/17 01:03/27/17 08:58 - Attending Attestation stable to discharge time spent 36 min I examined this patient and my medical decision-making was reviewed with the Resident Physician. I agree with the documented findings, disposition and treatment plan as described except to the extent set forth below.
--- NOTE | 2017-03-27 10:20 | Cardiology Progress Note ---
Date of Encounter: 03/27/17 Time of Encounter: 10:00 Assessment and Plan (1) Atypical chest pain Current Visit: Yes Status: Acute Presented to the ED with atypical chest pain--different from angina equivalent/ presenting symptoms last week. Troponin negative x3. No ischemic ECG changes. Denies recurrent chest pain or discomfort. Recent [facility] s/p PCI as described below, s/p successful PTCA/BRITTANEY to mLAD and to ISR of mRCA; otherwise non-obstructive CAD, EF preserved. Continue imdur at increased dose to optimize medications and improve BP control ; otherwise continue home CV medications for now including asa, statin, betablocker, plavix, amlodipine, and ACEi. No further testing recommended at this time. Follow-up as scheduled. (2) CAD (coronary artery disease) Current Visit: Yes Status: Chronic Plan as above. Uninterrupted DAPT (asa + plavix) x1 year s/p PTCA/BRITTANEY, continue betablocker, statin, and nitrates. Qualifiers: Coronary Disease-Associated Artery/Lesion type: [place] artery [place] vs. transplanted heart: [place] heart Associated angina: without angina Qualified Code(s): I25.10 - Atherosclerotic heart disease of [place] coronary artery without angina pectoris (3) HTN (hypertension) Current Visit: Yes Status: Chronic Elevated upon admission and remains uncontrolled as inpatient. BP improved with increased dose of imdur. Qualifiers: Hypertension type: essential hypertension Qualified Code(s): I10 - Essential (primary) hypertension Discussion w patient/family: The assessment and plan as outlined above was discussed with the patient and/or family members who expressed understanding and agreement. All questions were answered. Thank you for involving us in the care of your patient. Please call with any questions. The patient was discussed and reviewed with Dr. Manish Prado; Cardiology will sign-off, please call with questions. Subjective Principal diagnosis: Atypical CP Interval history: Seen and examined. Denies recurrent chest pain, feels much better today. No complaints upon exam today. Objective Vital Signs, Last 4 Hours Pulse Ox 03/27/17 08:58 98 General: Conversant, No Apparent Distress HEENT: Atraumatic, Normocephaly, Mucus Membranes Moist Neck: No JVD, Normal carotid pulses Cardiac: Reg Rate and Rhythm, Normal S1 and S2, No Murmur Lungs: Normal Breath Sounds, No Wheeze, Rales, Rhonchi Neuro: Alert and responsive, No focal deficits noted Abdomen: Soft, Non-Tender Skin: No rashes noted on visualized skin Musculoskeletal: No Chest Wall Tenderness Extremities: No Clubbing, No Cyanosis, No Edema, Normal Pulses Results 03/27/17 04:40 03/27/17 04:40 Lab Results 03/26/17 03/26/17 03/27/17 13:01 18:10 00:04 WBC Hgb Hct Plt Count INR APTT Sodium Potassium Chloride Carbon Dioxide BUN Creatinine Glucose Calcium Magnesium Total Bilirubin AST ALT Alkaline Phosphatase Troponin I 0.01 0.00 0.01 03/27/17 03/27/17 03/27/17 04:40 04:40 04:40 WBC 7.5 Hgb 12.1 Hct 36.2 Plt Count 197 INR 1.1 APTT 39.8 H Sodium 137 Potassium 4.0 Chloride 103 Carbon Dioxide 31 H BUN 16 Creatinine 0.79 Glucose 206 H Calcium 8.9 Magnesium 1.7 Total Bilirubin 0.5 AST 11 ALT 11 Alkaline Phosphatase < 5 L Troponin I - Imaging and Cardiology Echo: report reviewed Cardiac cath: report reviewed - EKG Interpretation EKG results cardiology: personally reviewed Consult Discharge Plan - Plan Referrals: Seamus Luther Jr, MD [Primary Care Provider] -
--- NOTE | 2017-03-27 15:57 | Venous Imaging Report ---
LE Venous Duplex Patient Name:Katerina Stokes Order Number:[id number] Procedure Date:03/26/2017 Date:2Age:66 yrs Gender:Female Location:[facility] Room #: [id number] [place]omic[place] Investigator:Marisela Merino RDMARC Referring MD:Tramaine Sanchez, MANAGER DEVELOPMENT Reading MD:Emery Lora MD , FACS Primary Indications:Rule out DVTs Secondary Indications: Risk Factors Yes/No Anticoagulants Yes Impressions: Bilateral lower extremity: normal superficial and deep exam. Recommendations: After imaging the patient returned to their room. Findings Venous Duplex Results: Right: Venous imaging of the lower extremity reveals full patency and normal vessel compressibility of the right distal iliac, right common femoral, right superficial femoral, right popliteal, right posterior tibial, right peroneal, right great saphenous and right lesser saphenous. Doppler signals in the evaluated veins were normal. Left: Venous imaging of the lower extremity reveals full patency and normal vessel compressibility of the left distal iliac, left common femoral, left superficial femoral, left popliteal, left posterior tibial, left peroneal, left great saphenous and left lesser saphenous. Doppler signals in the evaluated veins were normal. Prior Study: No prior study available for comparison. Lower Extremity Venous Duplex Side Vein Compress Spontaneous Flow Augment Diameter (cm) Depth (cm) Right Distal Iliac Normal Yes Phasic Yes Right Common Femoral Normal Yes Phasic Yes Right Superficial Femoral Normal Yes Phasic Yes Right Popliteal Normal Yes Phasic Yes Right Posterior Tibial Normal Yes Phasic Yes Right Peroneal Normal Yes Phasic Yes Right Great Saphenous Normal Yes Phasic Yes Right Lesser Saphenous Normal Yes Phasic Yes Left Distal Iliac Normal Yes Phasic Yes Left Common Femoral Normal Yes Phasic Yes Left Superficial Femoral Normal Yes Phasic Yes Left Popliteal Normal Yes Phasic Yes Left Posterior Tibial Normal Yes Phasic Yes Left Peroneal Normal Yes Phasic Yes Left Great Saphenous Normal Yes Phasic Yes Left Lesser Saphenous Normal Yes Phasic Yes Updated by Emery Lora MD, FACS on 03/27/2017 3:51:02 PM Emery Lora MD electronically signed on 03/27/2017 3:51:24 PM with status of Final
--- NOTE | 2017-03-30 20:36 | Electrocardiograph Report ---
[address] [address] Test Date: 2017-03-25 Pat Name: Katerina Stokes Department: 102 Room: [facility] Gender: F Rn Occupational Health: : 1950 Requested By: Kal Shah Order Number: [id number] Reading MD: Higinio Rain MD Measurements Intervals [place] Rate: 72 P: 24 TN: 162 QRS: 10 QRSD: 78 T: 34 QT: 389 QTc: 413 Interpretive Statements SINUS RHYTHM Electronically Signed On 03-30-2017 20:34:42 EDT by Higinio Rain MD
== END 2017-03-27 12:42 | disposition home or self-care (01) ==
LOC: EMEROO 18:13 → 2NENU 18:13 → SUATTDRO 21:42 → 2NENU 22:14
PROVIDERS: ADMIT Pediatrics; ATTEND Internal Medicine

== ENCOUNTER 2017-05-10 20:30 | Observation (INO) ==
[2017-05-10] MEDS ORDERED: Aspirin 81 MG TAB.CHEW PO ONE (21:15)
[2017-05-10 21:37] LABS: Basophils % 0.4 %; Eosinophils # 0.2 K/mcL (0.0-0.6); Eosinophils % 1.7 %; Hematocrit 44.2 % (35.3-44.9); Hemoglobin 14.8 g/dL (11.5-15.4); Immature Granulocytes % 0.3 % (0-4); Lymphocytes # 2.3 K/mcL (0.6-4.6); Lymphocytes % 25.1 %; Mean Corpuscular HGB Conc 33.5 g/dL (31.6-35.5); Mean Corpuscular Hemoglobin 29.5 pg (28.0-33.3); Mean Corpuscular Volume 88.2 fL (83.0-100.0); Mean Platelet Volume 10.9 fL (9.4-12.4); Monocytes # 0.7 K/mcL (0.0-1.3); Monocytes % 7.9 %; Neutrophils # 5.9 K/mcL (1.6-8.9); Platelet Count 217 K/mcL (140-400); Red Blood Count 5.01 M/mcL (3.82-4.97); Red Cell Distribution Width 12.6 % (11.5-14.5); Segmented Neutrophils % 64.6 %
[2017-05-10 21:43] LABS: Prothrombin Time 10.3 Seconds (9.4-12.1)
[2017-05-10 21:45] LABS: Activated Partial Thrombo Time 35.6 Seconds (26.0-36.0)
[2017-05-10 21:50] LABS: BUN/Creatinine Ratio 25 (6-26); Blood Urea Nitrogen 23 mg/dL (7-20); Calcium 9.6 mg/dL (8.6-10.8); Carbon Dioxide 24 mEq/L (19-29); Chloride 102 mEq/L (98-109); Glucose 203 mg/dL (70-99); Osmolality,Calculated 297 (280-300); Potassium 3.4 mEq/L (3.5-4.5); Sodium 139 mEq/L (136-145); eGFR For African Americans > 60 (> 60); eGFR For Non-African Americans > 60 (> 60)
--- NOTE | 2017-05-10 22:05 | Emergency Department Note ---
Disposition Clinical Impression: Dyspnea Qualifiers: Dyspnea type: unspecified Qualified Code(s): R06.00 - Dyspnea, unspecified CAD (coronary artery disease) Qualifiers: Coronary Disease-Associated Artery/Lesion type: unspecified vessel or lesion type [place] vs. transplanted heart: [place] heart Associated angina: with unspecified angina Qualified Code(s): I25.119 - Atherosclerotic heart disease of [place] coronary artery with unspecified angina pectoris Fatigue Qualifiers: Fatigue type: unspecified Qualified Code(s): R53.83 - Other fatigue Disposition: Admitted As Inpatient Condition: Good General Adult HPI - General Chief complaint: ED Weakness Stated complaint: dizzy/weak/jaw pain Time Seen by Provider: 05/10/17 20:47 Source: patient Limitations: no limitations Nursing Notes Reviewed: Yes Vital Signs Reviewed: Yes - History of Present Illness HPI Narrative: 66-year-old female with a past medical history of diabetes, hyperlipidemia, coronary arterial disease. She just had a stent placed a couple weeks ago. She reports increased fatigue since then. She presented to the emergency department due to 2 episodes lasting between 5 and 10 minutes of diaphoresis, shortness of breath, jaw pain. She denies having any actual pain in her chest but states that she has not had pain in her prior heart attacks. All of her symptoms have resolved by the time she arrived to the emergency department. She otherwise has been feeling well aside from the fatigue. She denies any new rashes or abdominal pain. She denies having a cough. Pain Scale: 0 Consistency: now resolved Improves with: nothing Worsens with: nothing Associated symptoms: Reports: denies other symptoms Treatments Prior to Arrival: none - Related Data Home Medications Medication Instructions Recorded Confirmed Metformin [Glucophage] 1,000 mg PO BIDWM 04/02/15 03/25/17 Clopidogrel [Plavix] 75 mg PO DAILY 04/10/15 03/25/17 Empagliflozin [Jardiance] 25 mg PO DAILY 07/22/16 03/25/17 Lansoprazole [Prevacid] 15 mg PO QAM 07/22/16 03/25/17 Magnesium 250 mg PO DAILY 07/22/16 03/25/17 Gabapentin [Neurontin] 300 mg PO QAM 02/27/17 03/25/17 Gabapentin [Neurontin] 600 mg PO HS 02/27/17 03/25/17 GlipiZIDE [Glipizide Xl] 5 mg PO DAILY 02/27/17 03/25/17 Insulin Glargine/Lixisenatide 16 unit SQ HS 02/27/17 03/25/17 [Soliqua 100 Unit-33 Mcg/ml Pen] Insulin LISPRO [Humalog] 6 - 12 unit SQ TIDWM 02/27/17 03/25/17 Previous Rx's Medication Instructions Recorded Aspirin Enteric Coated [Aspirin EC] 81 mg PO DAILY #30 02/28/17 Metoprolol [Lopressor] 12.5 mg PO BID 30 Days 02/28/17 Amlodipine Besylate 10 mg PO DAILY #30 tablet 03/21/17 Lidocaine Patch [Lidoderm 5% patch] 1 each TP DAILY #15 patch 03/21/17 Rosuvastatin [Crestor] 40 mg PO HS #30 tab 03/21/17 Isosorbide MONOnitrate (24 HR) 90 mg PO DAILY #30 tab.er.24h 03/27/17 [Imdur] Lisinopril [Zestril] 10 mg PO DAILY tab 03/27/17 Allergies Allergy/AdvReac Type Severity Reaction Status Date / Time Erythromycin Base Allergy Rash Verified 03/25/17 18:18 Penicillins Allergy Rash Verified 03/25/17 18:18 Sulfa (Sulfonamide Allergy Rash Verified 03/25/17 18:18 Antibiotics) All systems ED: reviewed and negative except as stated. Constitutional: Denies: fever Eyes: Denies: vision change ENT ED: Denies: throat pain Cardiovascular: Denies: chest pain Respiratory: Reports: dyspnea. 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 Absent: respiratory distress - Cardiovascular Cardiovascular exam: Present: regular rate, normal rhythm - Abdominal Exam Abdominal exam: Present: soft, Non-Tender - Extremities Exam Extremities exam: Present: normal inspection - Back Exam Back exam: Present: normal inspection - Neurological Exam Neurological exam: Present: alert, oriented X3 - Psychiatric Psychiatric exam: Present: normal affect, normal mood - Skin Skin exam: Present: warm, dry Course Course Narrative: She is completely asymptomatic this time. EKG is normal sinus rhythm without diagnostic ST deviation. I am concerned as she has recent stents placed and is having symptoms that could be considered an anginal equivalent. She will be admitted to the hospital for chest pain rule out. Initial lab work shows a d- dimer which is negative per the age-adjusted d-dimer rule. The rest her lab work is stable. Accepted by Dr Ramon Vital Signs Temperature 97.9 F 05/10/17 20:34 Pulse Rate 73 05/10/17 20:34 Respiratory Rate 16 05/10/17 20:34 Blood Pressure 146/80 05/10/17 20:34 O2 Sat by Pulse Oximetry 94 05/10/17 20:34 Temperature 97.9 F 05/10/17 20:34 Pulse Rate 71 05/10/17 21:33 Respiratory Rate 16 05/10/17 22:33 Blood Pressure 150/93 05/10/17 22:33 O2 Sat by Pulse Oximetry 98 05/10/17 21:33 Oxygen Delivery Oxygen Delivery Nasal Cannula Medical Decision Making - Medical Records Medical records reviewed: Yes I reviewed the patient's medical records. - Lab Data Lab results reviewed: Yes I reviewed the patient's lab results. Result diagrams: 05/10/17 21:31 05/10/17 21:31 Lab Results 05/10/17 05/10/17 05/10/17 Range/Units 21:31 21:31 21:31 WBC 9.2 (4.3-11.1) K/mcL RBC 5.01 H (3.82-4.97) M/mcL Hgb 14.8 (11.5-15.4) g/dL Hct 44.2 (35.3-44.9) % MCV 88.2 (83.0-100.0) fL MCH 29.5 (28.0-33.3) pg MCHC 33.5 (31.6-35.5) g/dL RDW 12.6 (11.5-14.5) % Plt Count 217 (140-400) K/mcL MPV 10.9 (9.4-12.4) fL Immature Gran % 0.3 (0-4) % Seg Neutrophils % 64.6 % Lymphocytes % 25.1 % Monocytes % 7.9 % Eosinophils % 1.7 % Basophils % 0.4 % Neutrophils # 5.9 (1.6-8.9) K/mcL Lymphocytes # 2.3 (0.6-4.6) K/mcL Monocytes # 0.7 (0.0-1.3) K/mcL Eosinophils # 0.2 (0.0-0.6) K/mcL Basophils # 0.0 (0.0-0.2) K/mcL PT 10.3 (9.4-12.1) Seconds INR 1.0 APTT 35.6 (26.0-36.0) Seconds D-Dimer 641 H (0-500) ng/mLFEU Sodium 139 (136-145) mEq/L Potassium 3.4 L (3.5-4.5) mEq/L Chloride 102 (98-109) mEq/L Carbon Dioxide 24 (19-29) mEq/L BUN 23 H (7-20) mg/dL Creatinine 0.91 (0.57-1.11) mg/dL Est GFR ( Amer) > 60 (> 60) Est GFR (Non-Af Amer) > 60 (> 60) BUN/Creatinine Ratio 25 (6-26) Glucose 203 H (70-99) mg/dL Calculated Osmolality 297 (280-300) Calcium 9.6 (8.6-10.8) mg/dL Troponin I (0-0.03) ng/mL 05/10/17 Range/Units 21:31 WBC (4.3-11.1) K/mcL RBC (3.82-4.97) M/mcL Hgb (11.5-15.4) g/dL Hct (35.3-44.9) % MCV (83.0-100.0) fL MCH (28.0-33.3) pg MCHC (31.6-35.5) g/dL RDW (11.5-14.5) % Plt Count (140-400) K/mcL MPV (9.4-12.4) fL Immature Gran % (0-4) % Seg Neutrophils % % Lymphocytes % % Monocytes % % Eosinophils % % Basophils % % Neutrophils # (1.6-8.9) K/mcL Lymphocytes # (0.6-4.6) K/mcL Monocytes # (0.0-1.3) K/mcL Eosinophils # (0.0-0.6) K/mcL Basophils # (0.0-0.2) K/mcL PT (9.4-12.1) Seconds INR APTT (26.0-36.0) Seconds D-Dimer (0-500) ng/mLFEU Sodium (136-145) mEq/L Potassium (3.5-4.5) mEq/L Chloride (98-109) mEq/L Carbon Dioxide (19-29) mEq/L BUN (7-20) mg/dL Creatinine (0.57-1.11) mg/dL Est GFR ( Amer) (> 60) Est GFR (Non-Af Amer) (> 60) BUN/Creatinine Ratio (6-26) Glucose (70-99) mg/dL Calculated Osmolality (280-300) Calcium (8.6-10.8) mg/dL Troponin I 0.01 (0-0.03) ng/mL - Radiology Data Radiology results reviewed: Yes I reviewed the patient's radiology results. - EKG Data EKG #1 EKG attestation: Yes I reviewed and interpreted this EKG. EKG shows normal: sinus rhythm Rate: normal Rhythm: NSR [place]/QRS: normal When compared to previous EKG there are: no significant changes Interpretation: no acute changes Attestation Statement - Attestation Attestation: I, Shailesh Colon MD, personally evaluated this patient and discussed their management with the resident physician. I reviewed the resident's note and agree with the documented findings, medical decision making, and plan of care. 66-year-old female who had a coronary artery stent placed about 5 weeks ago presents to the emergency department with a complaint that tonight while she was sitting in her sewing machine a very weak and faint and felt like she was going to pass out. She became diaphoretic and flushed. She did feel a little short of breath but states that she has felt short of breath ever since her stent. She denies any chest pain but complains of severe pain in her teeth and jaw. The pain lasted about 5-10 minutes and then resolved spontaneously. She denies any pain at present. On examination patient is a well-developed well-nourished well-appearing elderly female in no acute distress. She is alert and oriented 3. There is no cyanosis or diaphoresis. Chest is nontender to palpation. Breath sounds are clear and equal bilaterally. Heart regular rate and rhythm. Abdomen soft and nontender with normal bowel sounds. No pedal edema. EKG shows a normal sinus rhythm with no acute ischemic changes or ectopy. Chest x-ray negative. Labs reviewed. Troponin normal. D-dimer was elevated at 641 however is normal when adjusted for patient's age. The hospitalist, Dr. Ramon, was consulted and accepted admission of the patient.
--- NOTE | 2017-05-10 22:52 | Internal Med History&Physical ---
Date of Encounter: 05/10/17 Time of Encounter: 22:50 Assessment and Plan (1) CAD (coronary artery disease) Current visit: Yes Status: Acute Patient had a recent TCI to LAD earlier this month. She is compliant with aspirin Plavix. She denies any chest pain. Electrocardiogram shows no ST segment shifts. Initial troponin normal. Was trend troponin. Continuous cardiac monitoring Qualifiers: Qualified Code(s): I25.10 - Atherosclerotic heart disease of [place] coronary artery without angina pectoris (2) Diabetes mellitus type 2 in obese Current visit: Yes Status: Acute Continue home regimen in addition to sliding scale insulin (3) Shortness of breath Current visit: Yes Status: Acute Patient have had symptoms of shortness of breath lightheadedness nausea. Etiology unclear. May be related to vasovagal event or orthostasis or angina equivelant. Patient kidney functions is normal. I have discussed with her CT angiogram to rule out PE and will proceed. Internal Medicine - H&P: HPI Chief complaint: sob and nausea History of present illness: Ms. Stokes is a 66 year old female with multiple medical problems including diabetes mellitus, hypertension, coronary artery disease status post recent PCI earlier this month until antiplatelet therapy with aspirin Plavix presents to the emergency room today with a main complain of lightheadedness and nausea. Prior to arrival to ED patient had an episode of lightheadedness where she felt she is going to faint, in addition to nausea and shortness of breath. She denied any chest pain during this episode. This episode lasted for approximately 30 minutes. She denies any hematemesis, Melena, hematochezia. Patient mentioned that she had a history of left leg provoked DVT many years ago. Past Med Surg Social Fam HX - Past Medical History Medical history: arthritis, coronary artery disease, DVT, diabetes, hyperlipidemia, hypertension, myocardial infarction Psychiatric history: no psych history - Past Surgical History Surgical History: angioplasty/stent, appendectomy, , cholecystectomy, knee replacement, orthopedic, other - Social History Smoking Status: Never smoker Smokeless Tobacco Status: No Alcohol use: none Drug use: none - Family History Son Adopted: No Family Member Ethnicity: Non- Living Status: Still Living Hx Family Cardiac Disorders: Yes Hx Family Respiratory Disorders: Yes Hx Family Cancer: Yes Hx Family GI Disorders: Yes Hx Family Endocrine Disorder: Yes Hx Family Neuromuscular Disorders: No Hx Family Neurologic Disorders: No Hx Family HEENT Disorders: No Hx Family Autoimmune Disorders: No Father Adopted: No Family Member Ethnicity: Non- Living Status: Hx Family Cardiac Disorders: Yes (HD, HTN, HI x4, CABG) Hx Family HEENT Disorders: Yes (blind from macular degeneration) Mother Family Member Ethnicity: Non- Living Status: Hx Family Cardiac Disorders: Yes (HTN, HF) Hx Family Endocrine Disorder: Yes (DM) Sister Family Member Ethnicity: Non- Living Status: Hx Family Cardiac Disorders: Yes (HTN) Hx Family Cancer: Yes (Metastatic) Internal Medicine - H&P: Meds Metformin [Glucophage] 1,000 mg PO BIDWM 04/02/15 [History] Clopidogrel [Plavix] 75 mg PO DAILY 04/10/15 [History] Empagliflozin [Jardiance] 25 mg PO DAILY 07/22/16 [History] Lansoprazole [Prevacid] 15 mg PO QAM 07/22/16 [History] Magnesium 250 mg PO DAILY 07/22/16 [History] Gabapentin [Neurontin] 300 mg PO QAM 02/27/17 [History] Gabapentin [Neurontin] 600 mg PO HS 02/27/17 [History] GlipiZIDE [Glipizide Xl] 5 mg PO DAILY 02/27/17 [History] Insulin Glargine/Lixisenatide [Soliqua 100 Unit-33 Mcg/ml Pen] 16 unit SQ HS [History] Insulin LISPRO [Humalog] 6 - 12 unit SQ TIDWM 02/27/17 [History] Aspirin Enteric Coated [Aspirin EC] 81 mg PO DAILY #30 02/28/17 [Rx] Metoprolol [Lopressor] 12.5 mg PO BID 30 Days 02/28/17 [Rx] Amlodipine Besylate 10 mg PO DAILY #30 tablet 03/21/17 [Rx] Lidocaine Patch [Lidoderm 5% patch] 1 each TP DAILY #15 patch 03/21/17 [Rx] Rosuvastatin [Crestor] 40 mg PO HS #30 tab 03/21/17 [Rx] Isosorbide MONOnitrate (24 HR) [Imdur] 90 mg PO DAILY #30 tab.er.24h 03/27/17 [ Rx] Lisinopril [Zestril] 10 mg PO DAILY tab 03/27/17 [Rx] 3 Allergy/AdvReac Type Severity Reaction Status Date / Time Erythromycin Base Allergy Rash Verified 03/25/17 18:18 Penicillins Allergy Rash Verified 03/25/17 18:18 Sulfa (Sulfonamide Allergy Rash Verified 03/25/17 18:18 Antibiotics) All Systems PM: A 10-system review of systems was performed and is negative for pertinent findings except as documented above in the HPI. Review of systems: 10 point review of systems is negative except for HPI - Constitutional Vitals: Temp Pulse Resp BP Pulse Ox 97.9 F 71 16 150/93 98 05/10/17 20:34 05/10/17 21:33 05/10/17 22:33 05/10/17 22:33 05/10/17 21:33 Exam: Gen.: patient is alert oriented times 3 not in distress. Cardiac: normal S1 S2 no additional sounds or murmurs chest: fair air entry. no active wheezing. No crackles or bronchial breathing. abdomen: soft nontender nondistended normal bowel sounds neuro: no focal deficit Internal Med - H&P Results - Labs CBC & Chem 7: 05/10/17 21:31 05/10/17 21:31
[2017-05-11 04:29] LABS: Basophils % 0.5 %; Eosinophils # 0.2 K/mcL (0.0-0.6); Eosinophils % 2.3 %; Hematocrit 41.4 % (35.3-44.9); Hemoglobin 13.8 g/dL (11.5-15.4); Immature Granulocytes % 0.3 % (0-4); Lymphocytes # 2.9 K/mcL (0.6-4.6); Lymphocytes % 38.7 %; Mean Corpuscular HGB Conc 33.3 g/dL (31.6-35.5); Mean Corpuscular Hemoglobin 29.2 pg (28.0-33.3); Mean Corpuscular Volume 87.7 fL (83.0-100.0); Mean Platelet Volume 10.8 fL (9.4-12.4); Monocytes # 0.7 K/mcL (0.0-1.3); Monocytes % 9.4 %; Neutrophils # 3.6 K/mcL (1.6-8.9); Platelet Count 197 K/mcL (140-400); Red Blood Count 4.72 M/mcL (3.82-4.97); Red Cell Distribution Width 12.5 % (11.5-14.5); Segmented Neutrophils % 48.8 %
[2017-05-11 04:38] LABS: Hemoglobin A1C 6.5 %
[2017-05-11 04:42] LABS: BUN/Creatinine Ratio 27 (6-26); Blood Urea Nitrogen 21 mg/dL (7-20); Calcium 9.4 mg/dL (8.6-10.8); Carbon Dioxide 28 mEq/L (19-29); Chloride 104 mEq/L (98-109); Glucose 86 mg/dL (70-99); Magnesium 2.1 mg/dL (1.6-2.6); Osmolality,Calculated 296 (280-300); Potassium 3.8 mEq/L (3.5-4.5); Sodium 142 mEq/L (136-145); eGFR For African Americans > 60 (> 60); eGFR For Non-African Americans > 60 (> 60)
[2017-05-11] MEDS: Insulin LISPRO 300 UNITS/3 ML VIAL SQ SCH ×2 (08:04→12:33)
[2017-05-11] MEDS ORDERED: Aspirin Enteric Coated 81 MG Tablet PO SCH (09:00)
[2017-05-11 11:57] VITALS: BP 133/77
--- NOTE | 2017-05-11 12:01 | Discharge Summary ---
Date of Encounter: 05/11/17 Time of Encounter: 08:35 - Discharge Diagnosis (1) Near syncope Priority: Primary Status: Acute Comments: Pt reports near syncope last night at home, similar episode 2 weeks ago while walking [place] [place]. Pt states that she took her dishes to the kitchen after dinner last night and when she sat down on the couch, approximately 1 minute later, she reports that she felt like she was going to have diarrhea,had tunnel vision, n/v, hot flashes, flushed, keon jaw pain 10/10, weakness. Denies chest pain or diaphoresis. Lasted about 30 min and resolved on it's own. Pt reports loss of energy for 5 weeks since stent placed. Pt [facility] with stent placement on 03/20/17, double vessel CAD, LVEF 65%, successful PTCA/BRITTANEY to mid LAD and mid RCA, prior stent to proximal LAD widely patent. Echo on 02/28/17 showed normal LV size, mild LVH, mild DD, EF 60%, trace TR and MR1+. Pt had 24 hour average pulse of 59, no episodes of arrhythmias. She is normotensive. She was seen in cardiology office 5 days ago, 2 week event monitor ordered, will be placed prior to discharge, and pt had medication change. I discussed the case with cardiology BOARD DESIGN ENGINEER, no further suggestions or changes necessary from their standpoint. I have recommended that pt have a limited echo and carotid dopplers, she declines and states that she wants to go home. Troponins negative, vitals are stable, chest xray negative. Orthostatics are negative. Pt is back to baseline and denies headache, blurred vision, jaw pain, n/v/d, diaphoresis, chest pain. Pt will be discharged after event monitor placed. (2) CAD (coronary artery disease) Priority: Secondary Status: Chronic Comments: Pt with recent stents, DAPT compliant. Continue home medications including , Plavix, aspirin, beta rylan. Patient denies chest pain. Qualifiers: Coronary Disease-Associated Artery/Lesion type: unspecified vessel or lesion type [place] vs. transplanted heart: [place] heart Associated angina: with unspecified angina Qualified Code(s): I25.119 - Atherosclerotic heart disease of [place] coronary artery with unspecified angina pectoris (3) Diabetes mellitus type 2 in obese Priority: Secondary Status: Acute Comments: Patient's A1c 6.5. Patient reports significant intentional weight loss. Continue home medications and see primary care provider for medication adjustments due to decreased A1c and weight loss. (4) Shortness of breath Priority: Secondary Status: Resolved - Discharge Medications Home Medications: Clopidogrel [Plavix] 75 mg PO DAILY 04/10/15 [History] Empagliflozin [Jardiance] 25 mg PO DAILY 07/22/16 [History] Lansoprazole [Prevacid] 15 mg PO QAM 07/22/16 [History] Magnesium 250 mg PO DAILY 07/22/16 [History] Gabapentin [Neurontin] 300 mg PO QAM 02/27/17 [History] Gabapentin [Neurontin] 600 mg PO HS 02/27/17 [History] GlipiZIDE [Glipizide Xl] 5 mg PO DAILY 02/27/17 [History] Insulin LISPRO [Humalog] 6 - 12 unit SQ TIDWM 02/27/17 [History] Aspirin Enteric Coated [Aspirin EC] 81 mg PO DAILY #30 02/28/17 [Rx] Metoprolol [Lopressor] 12.5 mg PO BID 30 Days 02/28/17 [Rx] Amlodipine Besylate 10 mg PO DAILY #30 tablet 03/21/17 [Rx] Lidocaine Patch [Lidoderm 5% patch] 1 each TP DAILY #15 patch 03/21/17 [Rx] Isosorbide MONOnitrate (24 HR) [Imdur] 90 mg PO DAILY #30 tab.er.24h 03/27/17 [ Rx] Insulin Glargine [Lantus] 24 unit SQ QAM 05/11/17 [History] Lisinopril [Zestril] 40 mg PO DAILY 05/11/17 [History] Metformin HCl [Metformin HCl ER] 1,000 mg PO BID 05/11/17 [History] hydroCHLOROthiazide [Hydrochlorothiazide] 25 mg PO DAILY 05/11/17 [History] Allergies/Adverse Reactions: 3 Allergy/AdvReac Type Severity Reaction Status Date / Time Erythromycin Base Allergy Rash Verified 03/25/17 18:18 Penicillins Allergy Rash Verified 03/25/17 18:18 Sulfa (Sulfonamide Allergy Rash Verified 03/25/17 18:18 Antibiotics) Procedures/tests Complete & Pending: Procedures Performed prior 72 hours Category Date Time Status CTA chest [CT angio chest] [CT] Stat Cat Scan 05/10/17 22:39 Completed ECG event monitor 2 weeks [ECG] Stat Y 05/11/17 11:35 Ordered Date of admission: 05/10/17 22:24 Primary care physician: Seamus Luther Jr, MD Discharging clinician: Tiff Rich Anticipated date of discharge: 05/11/17 - Patient Status Disposition: Home, Self-Care Condition: Good - Discharge Instructions Forms: ED Satisfaction Letter Additional Instructions: Follow up with PCP in the next 7-10 days for a recheck. Follow up with cardiology in 2 weeks after the event monitor is read. Take your normal home medications. Return to the ER immediately if your symptoms return or worsen, or for any other problems or concerns. Resume your normal activities as tolerated. Make sure that you change positions slowly and that you are drinking plenty of water daily. - Diet and Activity Activity: increase activity as tolerated Diet: advance to your usual diet, diabetic diet Interval History: Please see assessment and plan for hospital course. Hospital course: Ms. Stokes is a 66 year old female - Time Spent with Patient Total time spent providing and/or coordinating discharge services: Less than 30 minutes - Constitutional Vitals: Temp Pulse Resp BP Pulse Ox 97.8 F 59 16 112/68 95 05/11/17 10:52 05/11/17 10:52 05/11/17 10:52 05/11/17 10:52 05/11/17 10:52 General appearance: Present: cooperative, A&O X 3, pleasant, no acute distress, answers questions appropriately - Head Head exam: Present: atraumatic, normal inspection, normocephalic - Eye Eye exam: Present: normal appearance, conjuntiva pink, sclera anicteric - Neck Neck exam general surgery: Present: supple, trachea midline. Absent: lymphadenopathy - Respiratory Respiratory exam: Present: CTAB. Absent: accessory muscle use, chest wall tenderness, decreased breath sounds, rales, respiratory distress, rhonchi, wheezes - Cardiovascular Cardiovascular exam: Present: bradycardia, RRR, +S1, +S2. Absent: diastolic murmur, gallop, rubs, systolic murmur - GI/Abdominal GI/Abdominal exam: Present: normal bowel sounds, soft, no peritoneal signs. Absent: distended, hepatomegaly, tenderness - Extremities Exam Extremities exam: Present: normal capillary refill, normal inspection, warm, radial pulses palpable and symmetrical. Absent: calf tenderness, cyanotic, pedal edema, tenderness - Neurological Exam Neurological exam: Present: alert, oriented X3, no focal deficits. Absent: facial droop, speech deficit - Skin Skin exam: Present: dry, intact, normal color, warm. Absent: rash
--- NOTE | 2017-05-11 16:51 | Electrocardiograph Report ---
[place] [id number] Test Date: 2017-05-10 Pat Name: Katerina Stokes Department: 102 Room: 3B Gender: F Guest Relations Coordinator: [place] : 1950 Requested By: Fredy Hess Order Number: [id number] Reading MD: Lisa Jeffrey Measurements Intervals [place] Rate: 72 P: 24 [place]: 176 QRS: 2 QRSD: 89 T: 30 QT: 397 QTc: 421 Interpretive Statements SINUS RHYTHM MINIMAL VOLTAGE CRITERIA FOR LVH, CONSIDER NORMAL VARIANT Electronically Signed On 05-11-2017 16:49:50 EDT by Lisa Jeffrey
[2017-05-13 20:00] LABS: CK-MB (CK isoenzymes) 0 % (0-4); CK-MM (CK-isoenzymes) 100 % (96-100)
[2017-05-13 20:00] LABS: CK-MB (CK isoenzymes) 0 % (0-4); CK-MM (CK-isoenzymes) 100 % (96-100)
[2017-05-14 07:54] LABS: CK Total (Ck Isoenzymes) 68 U/L (20-180); CK-BB (CK isoenzymes) 0 % (0-0)
[2017-05-14 07:54] LABS: CK Total (Ck Isoenzymes) 60 U/L (20-180)
[2017-05-14 07:55] LABS: CK-BB (CK isoenzymes) 0 % (0-0)
== END 2017-05-11 15:00 | disposition home or self-care (01) ==
LOC: 3BNU 20:30 → EMEROO 20:30 → 3BNU 22:43
PROVIDERS: ADMIT Hospitalist; ATTEND Registered Nurse

== ENCOUNTER 2019-02-25 11:02 | Observation (INO) ==
[2019-02-25 11:52] LABS: Bilirubin,Urine Negative (Negative); Blood,Urine Negative (Negative); Clarity,Urine Clear (Clear); Color,Urine Yellow (Yellow); Glucose,Urine (UA) 500 mg/dL (Normal); Ketones,Urine Negative (Negative); Leukocyte Esterase,Urine Small (Negative); Nitrite,Urine Negative (Negative); PH,Urine 6.5 pH Units (5.0-8.0); Protein,Urine Negative (Neg-Trace); Specific Gravity,Urine 1.016 (1.010-1.025); Urobilinogen,Urine Normal (Normal)
[2019-02-25 11:53] LABS: Hematocrit 42.7 % (35.3-44.9); Hemoglobin 14.6 g/dL (11.5-15.4); Mean Corpuscular HGB Conc 34.2 g/dL (31.6-35.5); Mean Corpuscular Hemoglobin 29.8 pg (28.0-33.3); Mean Corpuscular Volume 87.1 fL (83.0-100.0); Mean Platelet Volume 11.3 fL (9.4-12.4); Platelet Count 203 K/mcL (140-400); Red Cell Distribution Width 12.7 % (11.5-14.5); White Blood Count 7.9 K/mcL (4.3-11.1)
[2019-02-25 11:55] LABS: Bacteria,Urine Few per hpf (None-Few); Hyaline Casts,Urine None Seen per lpf (None-Few); RBC,Urine 0-3 per hpf (0-3); Squamous Epithelial Cell,Urine Many per lpf (None-Few)
[2019-02-25 12:13] LABS: BUN/Creatinine Ratio 19 (6-26); Blood Urea Nitrogen 15 mg/dL (8-23); Calcium 9.7 mg/dL (8.6-10.3); Carbon Dioxide 30 mEq/L (23-29); Chloride 100 mEq/L (98-107); Glucose 213 mg/dL (70-105); Osmolality,Calculated 291 (280-300); Potassium 3.8 mEq/L (3.5-5.1); Sodium 137 mEq/L (136-145); Troponin I < 0.03 ng/mL (< 0.04); eGFR For African Americans > 60 (> 60); eGFR For Non-African Americans > 60 (> 60)
[2019-02-25 12:14] LABS: INR 1.1; Prothrombin Time 12.1 Seconds (9.4-12.1)
[2019-02-25 12:17] LABS: Activated Partial Thrombo Time 41.2 Seconds (26.0-36.0)
[2019-02-25] MEDS ORDERED: Aspirin 81 MG TAB.CHEW PO STA (13:12)
[2019-02-25] MEDS ORDERED: Nitroglycerin 0.4 MG TAB.SUBL SL PRN (13:23)
[2019-02-25] MEDS ORDERED: Acetaminophen 325 MG TABLET PO PRN (14:00)
[2019-02-25] MEDS: carvediloL 6.25 MG TABLET PO SCH (20:22)
[2019-02-26] MEDS: carvediloL 6.25 MG TABLET PO SCH (08:10)
[2019-02-26] MEDS ORDERED: Isovue-370 500 ML BOTTLE IVP ONE (08:22)
[2019-02-26] MEDS ORDERED: Isosorbide MONOnitrate (24 HR) 30 MG TAB.ER.24H PO SCH (09:00)
[2019-02-26] MEDS ORDERED: Aspirin Enteric Coated 81 MG Tablet PO SCH (09:00)
[2019-02-26 10:58] LABS: INR 1.1; Prothrombin Time 12.5 Seconds (9.4-12.1)
[2019-02-26 11:03] VITALS: BP 118/60
[2019-02-26 11:13] LABS: Alanine Aminotransferase 13 Units/L (7-52); Albumin 3.5 g/dL (3.5-5.7); Albumin/Globulin Ratio 1.5 (1.1-2.2); Alkaline Phosphatase 103 Units/L (34-104); Aspartate Amino Transferase 12 Units/L (13-39); BUN/Creatinine Ratio 17 (6-26); Bilirubin,Total 0.8 mg/dL (0.3-1.0); Blood Urea Nitrogen 16 mg/dL (8-23); Calcium 8.6 mg/dL (8.6-10.3); Carbon Dioxide 27 mEq/L (23-29); Chloride 101 mEq/L (98-107); Chol/HDL Ratio 4.8 (0-4.9); Cholesterol 191 mg/dL (< 200); Globulin 2.4 g/dL (2.4-3.5); Glucose 244 mg/dL (70-105); HDL Cholesterol 40 mg/dL (40-59); LDL Cholesterol,Calculated 126 mg/dL (0-99); Osmolality,Calculated 287 (280-300); Potassium 4.1 mEq/L (3.5-5.1); Sodium 134 mEq/L (136-145); Total Protein 5.9 g/dL (6.4-8.9); Triglycerides 125 mg/dL (< 150); eGFR For African Americans > 60 (> 60); eGFR For Non-African Americans > 60 (> 60)
[2019-02-26 11:26] LABS: Thyroid Stimulating Hormone 1.276 mcIU/mL (0.340-5.600)
[2019-02-26] MEDS ORDERED: 0.9 % Sodium Chloride 1,000 ML IVC SCH (13:43)
[2019-02-26] MEDS ORDERED: Aspirin 325 MG TABLET PO SCH (13:45)
[2019-02-26 15:51] LABS: Estimated Average Glucose 217 mg/dl
== END 2019-02-26 19:05 | disposition critical access hospital (66) ==
LOC: EMEROOARM 11:02 → 3BNU 11:02 → SUATTDRO 14:04 → 3BNU 14:32
PROVIDERS: ADMIT Internal Medicine; ATTEND Pharmacist

== ENCOUNTER 2019-10-22 21:05 | Observation (INO) ==
[2019-10-22 21:43] LABS: Basophils % 0.4 %; Eosinophils # 0.2 K/mcL (0.0-0.6); Hematocrit 43.6 % (35.3-44.9); Hemoglobin 14.3 g/dL (11.5-15.4); Immature Granulocytes % 0.3 % (0-4); Lymphocytes % 40.7 %; Mean Corpuscular HGB Conc 32.8 g/dL (31.6-35.5); Mean Corpuscular Hemoglobin 30.1 pg (28.0-33.3); Mean Corpuscular Volume 91.8 fL (83.0-100.0); Mean Platelet Volume 11.7 fL (9.4-12.4); Monocytes # 0.5 K/mcL (0.0-1.3); Neutrophils # 3.7 K/mcL (1.6-8.9); Platelet Count 196 K/mcL (140-400); Red Blood Count 4.75 M/mcL (3.82-4.97); Red Cell Distribution Width 12.8 % (11.5-14.5); Segmented Neutrophils % 49.6 %; White Blood Count 7.5 K/mcL (4.3-11.1)
[2019-10-22] MEDS ORDERED: 0.9 % Sodium Chloride 1,000 ML IV ONE (21:50)
[2019-10-22] MEDS ORDERED: Metoclopramide 10 MG/2 ML VIAL IVP ONE (21:51)
[2019-10-22 22:00] LABS: BUN/Creatinine Ratio 20 (6-26); Blood Urea Nitrogen 18 mg/dL (8-23); Calcium 9.3 mg/dL (8.6-10.3); Carbon Dioxide 28 mEq/L (23-29); Chloride 104 mEq/L (98-107); Glucose 342 mg/dL (70-105); Osmolality,Calculated 303 (280-300); Potassium 3.7 mEq/L (3.5-5.1); Sodium 139 mEq/L (136-145); Troponin I < 0.03 ng/mL (< 0.04); eGFR For African Americans > 60 (> 60); eGFR For Non-African Americans > 60 (> 60)
[2019-10-22 22:02] LABS: Prothrombin Time 10.9 Seconds (9.4-12.1)
[2019-10-22 22:05] LABS: Activated Partial Thrombo Time 38.7 Seconds (26.0-36.0)
[2019-10-22] MEDS ORDERED: Isovue-370 500 ML BOTTLE IVP ONE (22:09)
[2019-10-23] MEDS: Aspirin 81 MG TAB.CHEW PO ONE ×2 (00:02→01:37)
[2019-10-23] MEDS ORDERED: Aspirin 81 MG TAB.CHEW ONE (01:37)
[2019-10-23] MEDS ORDERED: Aspirin 81 MG TAB.CHEW PO ONE (01:45)
[2019-10-23] MEDS ORDERED: Naloxone 0.4 MG/ML INJ IVP PRN (02:48)
[2019-10-23] MEDS ORDERED: Acetaminophen 325 MG TABLET PO PRN (02:48)
[2019-10-23] MEDS ORDERED: Ondansetron 4 MG/2 ML VIAL IVP PRN (02:48)
[2019-10-23] MEDS ORDERED: D5% in Water 1,000 ML IVC PRN (03:45)
[2019-10-23] MEDS ORDERED: Dextrose Gel 15 GM/37.5 ML TUBE PO PRN ×2 (03:45)
[2019-10-23] MEDS ORDERED: *HR* Dextrose 50 % in Water (Syg) 50 ML SYRINGE IVP PRN (03:45)
[2019-10-23] MEDS ORDERED: *HR* OxyCODONE/APAP 7.5/325 TABLET PO PRN (03:46)
[2019-10-23] MEDS ORDERED: Insulin LISPRO 300 UNITS/3 ML VIAL SQ SCH (04:00)
[2019-10-23] MEDS: Insulin LISPRO 300 UNITS/3 ML VIAL SQ SCH ×2 (06:26→12:19)
[2019-10-23] MEDS: *HR* Heparin 5,000 UNIT/ML VIAL SQ SCH ×2 (06:27→14:57)
[2019-10-23 06:36] LABS: Basophils % 0.7 %; Eosinophils # 0.1 K/mcL (0.0-0.6); Eosinophils % 2.1 %; Hematocrit 37.3 % (35.3-44.9); Hemoglobin 12.2 g/dL (11.5-15.4); Immature Granulocytes % 0.2 % (0-4); Lymphocytes # 2.5 K/mcL (0.6-4.6); Lymphocytes % 40.6 %; Mean Corpuscular HGB Conc 32.7 g/dL (31.6-35.5); Mean Corpuscular Hemoglobin 30.1 pg (28.0-33.3); Mean Corpuscular Volume 92.1 fL (83.0-100.0); Mean Platelet Volume 11.6 fL (9.4-12.4); Monocytes # 0.6 K/mcL (0.0-1.3); Monocytes % 9.1 %; Neutrophils # 2.9 K/mcL (1.6-8.9); Platelet Count 155 K/mcL (140-400); Red Blood Count 4.05 M/mcL (3.82-4.97); Red Cell Distribution Width 12.7 % (11.5-14.5); Segmented Neutrophils % 47.3 %; White Blood Count 6.1 K/mcL (4.3-11.1)
[2019-10-23 06:54] LABS: BUN/Creatinine Ratio 27 (6-26); Blood Urea Nitrogen 17 mg/dL (8-23); Calcium 8.7 mg/dL (8.6-10.3); Carbon Dioxide 27 mEq/L (23-29); Chloride 109 mEq/L (98-107); Glucose 205 mg/dL (70-105); Magnesium 1.8 mg/dL (1.6-2.6); Osmolality,Calculated 297 (280-300); Phosphorous 3.9 mg/dL (2.7-4.5); Potassium 3.9 mEq/L (3.5-5.1); Sodium 140 mEq/L (136-145); eGFR For African Americans > 60 (> 60); eGFR For Non-African Americans > 60 (> 60)
[2019-10-23] MEDS ORDERED: predniSONE 20 MG TABLET PO SCH (09:00)
[2019-10-23 09:32] LABS: Estimated Average Glucose 203 mg/dl
[2019-10-23 11:30] VITALS: BP 149/81
== END 2019-10-23 15:23 | disposition home or self-care (01) ==
LOC: 3BNU 21:05 → EMEROOARM 21:05 → 3BNU 10-23 02:05
PROVIDERS: ADMIT Student in an Organized Health Care Education/Training Program; ATTEND Student in an Organized Health Care Education/Training Program

== ENCOUNTER 2021-12-24 10:15 | Observation (INO) ==
[2021-12-24 10:57] LABS: Basophils # 0.1 K/mcL (0.0-0.2); Basophils % 0.6 %; Eosinophils # 0.2 K/mcL (0.0-0.6); Eosinophils % 2.2 %; Hematocrit 41.7 % (35.3-44.9); Hemoglobin 13.7 g/dL (11.5-15.4); Immature Granulocytes % 0.2 % (0-4); Lymphocytes # 2.9 K/mcL (0.6-4.6); Mean Corpuscular HGB Conc 32.9 g/dL (31.6-35.5); Mean Corpuscular Hemoglobin 29.5 pg (28.0-33.3); Mean Corpuscular Volume 89.9 fL (83.0-100.0); Mean Platelet Volume 11.4 fL (9.4-12.4); Monocytes # 0.7 K/mcL (0.0-1.3); Monocytes % 7.8 %; Neutrophils # 4.7 K/mcL (1.6-8.9); Platelet Count 185 K/mcL (140-400); Red Blood Count 4.64 M/mcL (3.82-4.97); Red Cell Distribution Width 12.9 % (11.5-14.5); Segmented Neutrophils % 55.2 %; White Blood Count 8.5 K/mcL (4.3-11.1)
[2021-12-24 11:17] LABS: BUN/Creatinine Ratio 16 (6-26); Blood Urea Nitrogen 16 mg/dL (8-23); Calcium 9.1 mg/dL (8.6-10.3); Carbon Dioxide 26 mEq/L (23-29); Chloride 106 mEq/L (98-107); Glucose 228 mg/dL (70-105); Osmolality,Calculated 296 (280-300); Potassium 4.1 mEq/L (3.5-5.1); Sodium 139 mEq/L (136-145); Troponin I < 0.03 ng/mL (< 0.04); eGFR For African Americans > 60 (> 60); eGFR For Non-African Americans 53 (> 60)
[2021-12-24] MEDS ORDERED: Aspirin 325 MG TABLET PO ONE (11:32)
[2021-12-24] MEDS ORDERED: Melatonin 3 MG TABLET PO PRN (13:45)
[2021-12-24] MEDS ORDERED: MOM Conc 10 ML UD.LIQ PO PRN (13:45)
[2021-12-24] MEDS ORDERED: Ondansetron ODT 4 MG TAB.RAPDIS SL PRN (13:45)
[2021-12-24] MEDS ORDERED: Naloxone 0.4 MG/ML INJ IVP PRN (13:45)
[2021-12-24] MEDS ORDERED: Mag Hydrox/Al Hydrox/Simeth 30 ML UDC PO PRN (13:45)
[2021-12-24] MEDS ORDERED: Perflutren Lipid Microsphere 1.3 ML in 0.9 % Sodium Chloride 8.7 ML IVP PRN (13:47)
[2021-12-24] MEDS ORDERED: D5% in Water 1,000 ML IVC PRN (13:48)
[2021-12-24] MEDS ORDERED: Dextrose Gel 15 GM/37.5 ML TUBE PO PRN ×2 (13:48)
[2021-12-24] MEDS ORDERED: *HR* Dextrose 50 % in Water (Syg) 50 ML SYRINGE IVP PRN (13:48)
[2021-12-24] MEDS ORDERED: *HR* Heparin 5,000 UNIT/ML VIAL IVP PRN ×2 (19:34)
[2021-12-24] MEDS ORDERED: *HR* Heparin 5,000 UNIT/ML VIAL IVP ONE (19:34)
[2021-12-24] MEDS ORDERED: Heparin 25,000UNIT/250ML 1/2NS 25,000 UNIT/250 ML IV.SOLN IVC SCH (19:45)
[2021-12-24 20:06] LABS: Hematocrit 40.7 % (35.3-44.9); Hemoglobin 13.1 g/dL (11.5-15.4); Mean Corpuscular HGB Conc 32.2 g/dL (31.6-35.5); Mean Corpuscular Volume 90.2 fL (83.0-100.0); Mean Platelet Volume 11.3 fL (9.4-12.4); Platelet Count 190 K/mcL (140-400); Red Blood Count 4.51 M/mcL (3.82-4.97); Red Cell Distribution Width 12.8 % (11.5-14.5); White Blood Count 9.7 K/mcL (4.3-11.1)
[2021-12-24 20:18] LABS: Heparin anti-factor XA UFH < 0.04 IU/mL (0.30-0.70); Prothrombin Time 11.5 Seconds (9.4-12.1)
[2021-12-25 03:39] LABS: Basophils # 0.1 K/mcL (0.0-0.2); Basophils % 0.6 %; Eosinophils # 0.3 K/mcL (0.0-0.6); Eosinophils % 2.7 %; Hematocrit 40.2 % (35.3-44.9); Hemoglobin 13.1 g/dL (11.5-15.4); Immature Granulocytes % 0.3 % (0-4); Lymphocytes # 3.6 K/mcL (0.6-4.6); Lymphocytes % 38.1 %; Mean Corpuscular HGB Conc 32.6 g/dL (31.6-35.5); Mean Corpuscular Hemoglobin 29.1 pg (28.0-33.3); Mean Corpuscular Volume 89.3 fL (83.0-100.0); Mean Platelet Volume 11.6 fL (9.4-12.4); Monocytes # 0.6 K/mcL (0.0-1.3); Monocytes % 6.4 %; Neutrophils # 4.9 K/mcL (1.6-8.9); Platelet Count 178 K/mcL (140-400); Red Cell Distribution Width 12.7 % (11.5-14.5); Segmented Neutrophils % 51.9 %; White Blood Count 9.5 K/mcL (4.3-11.1)
[2021-12-25 03:53] LABS: Alanine Aminotransferase 10 Units/L (7-52); Albumin 3.6 g/dL (3.5-5.7); Albumin/Globulin Ratio 1.5 (1.1-2.2); Alkaline Phosphatase 136 Units/L (34-104); Aspartate Amino Transferase 10 Units/L (13-39); BUN/Creatinine Ratio 18 (6-26); Bilirubin,Total 0.8 mg/dL (0.3-1.0); Blood Urea Nitrogen 15 mg/dL (8-23); Calcium 8.9 mg/dL (8.6-10.3); Carbon Dioxide 26 mEq/L (23-29); Chloride 107 mEq/L (98-107); Cholesterol 127 mg/dL (< 200); Globulin 2.4 g/dL (2.4-3.5); Glucose 149 mg/dL (70-105); HDL Cholesterol 43 mg/dL (40-59); LDL Cholesterol,Calculated 67 mg/dL (< 100); Osmolality,Calculated 294 (280-300); Potassium 3.9 mEq/L (3.5-5.1); Sodium 140 mEq/L (136-145); Triglycerides 87 mg/dL (< 150); eGFR For African Americans > 60 (> 60); eGFR For Non-African Americans > 60 (> 60)
[2021-12-25] MEDS: Aspirin Enteric Coated 81 MG Tablet PO SCH (10:30)
[2021-12-25] MEDS ORDERED: *HR* FentaNYL (PF) 100 MCG/2 ML VIAL ONE ×2 (10:30→11:29)
[2021-12-25] MEDS ORDERED: *HR* Midazolam HCl 2 MG/2 ML VIAL ONE ×2 (10:30→11:05)
[2021-12-25] MEDS ORDERED: 0.9 % Sodium Chloride 2,000 ML ONE (10:30)
[2021-12-25] MEDS ORDERED: Nitroglycerin 1,000 MCG/5 ML VIAL IV ONE (10:31)
[2021-12-25] MEDS ORDERED: Heparin 1,000 UNITS/500 mL 500 ML ONE (10:31)
[2021-12-25] MEDS ORDERED: *HR* Heparin 10,000 UNIT/10 ML VIAL ONE (10:31)
[2021-12-25] MEDS ORDERED: Iopamidol - 370 200 ML INFUS..BTL ONE (10:31)
[2021-12-25 11:10] LABS: Estimated Average Glucose 194 mg/dl; Hemoglobin A1C 8.4 %
[2021-12-25] MEDS ORDERED: *HR* Atropine Sulfate 1 MG/10 ML SYRINGE ONE (11:35)
[2021-12-25] MEDS ORDERED: ISOSORBIDE DINITRATE 40 MG PO SCH (21:00)
[2021-12-25] MEDS: hydrALAZINE 25 MG TABLET PO SCH (22:25)
[2021-12-26 06:48] VITALS: BP 137/76; PULSE 65; TEMP 98.1; O2SAT 96
[2021-12-26 07:00] LABS: Troponin I 0.09 ng/mL (< 0.04)
[2021-12-26 07:01] LABS: Hematocrit 42.1 % (35.3-44.9); Hemoglobin 13.6 g/dL (11.5-15.4)
[2021-12-26 07:18] LABS: BUN/Creatinine Ratio 18 (6-26); Blood Urea Nitrogen 15 mg/dL (8-23); eGFR For African Americans > 60 (> 60); eGFR For Non-African Americans > 60 (> 60)
[2021-12-26] MEDS ORDERED: lisinopriL 20 MG TABLET PO SCH (09:00)
[2021-12-26] MEDS: hydrALAZINE 25 MG TABLET PO SCH (09:41)
[2021-12-26] MEDS: Aspirin Enteric Coated 81 MG Tablet PO SCH (09:41)
[2021-12-27] MEDS ORDERED: lisinopriL 20 MG TABLET PO SCH (09:00)
== END 2021-12-26 11:46 | disposition home or self-care (01) ==
LOC: 3BNU 10:15 → EMEROOARM 10:15 → 3BNU 14:54
PROVIDERS: ADMIT Hospitalist; ATTEND Hospitalist